=== PATIENT | female | born 1955 | race African-American/Black ===

== ENCOUNTER 2018-11-23 17:19 | Emergency (ER) | payer OTHER ==
[2018-11-23 19:52] LABS: Absolute Lymphocytes (CBC) 1.5 K/uL (0.7-4.9); Absolute Monocytes 0.5 K/uL (0.1-1.3); Absolute Neutrophil 3.3 K/uL (1.8-8.0); Basophils % 0.9 % (0-1.3); Eosinophils % 1.9 % (0-4.4); Hematocrit 41.8 % (36.0-45.0); MPV 8.1 fL (7.6-11.3); Monocytes % 8.6 % (3.3-12.3); RBC Red Blood Cell Count 4.96 M/uL (3.86-4.86)
[2018-11-23 19:54] LABS: Protime INR 1.07
--- NOTE | 2018-11-23 19:57 | RAD REPORT ---
EXAM DESCRIPTION: RAD - Chest Single View - 11/23/2018 7:51 pm CLINICAL HISTORY: CHEST PAIN Chest pain. COMPARISON: No comparisonsNo comparisons FINDINGS: Portable technique limits examination quality. The lungs are grossly clear. The heart is normal in size. No displaced fractures. IMPRESSION: No acute intrathoracic process suspected.
[2018-11-23 20:11] LABS: ALT/SGPT 47 U/L (12-78); AST/SGOT 34 U/L (15-37); Albumin 3.8 g/dL (3.4-5.0); Alkaline Phosphatase 122 U/L (45-117); BUN Blood Urea Nitrogen 15 mg/dL (7-18); Bicarbonate 30 mmol/L (21-32); Bilirubin Direct < 0.1 mg/dL (0-0.2); Bilirubin Total 0.4 mg/dL (0.2-1.0); Glucose Level 107 mg/dL (74-106); Magnesium 2.5 mg/dL (1.8-2.4); NT PRO-BNP 14 pg/mL (<125); Potassium 3.3 mmol/L (3.5-5.1); Protein, Total 7.9 g/dL (6.4-8.2); Sodium Level 143 mmol/L (136-145); Troponin (Emerg Dept Use Only) < 0.02 ng/mL (0.0-0.045)
[2018-11-23] MEDS ORDERED: POTASSIUM CL SA 10 MEQ TAB PO ONE (20:57)
--- NOTE | 2018-11-23 21:35 | EDPHYS ---
Physician Documentation [facility] Name: Darlene Tobias Age: 63 yrs Sex: Female : 1955 Arrival Date: 11/23/2018 Time: 17:23 Bed 24 Private MD: out of town, doctor ED Physician Justyn Jha HPI: 11/23 20:00 This 63 yrs old Black Female presents to ER via Ambulatory with complaints of Chest pm1 Pain. 21:40 The patient or guardian reports chest pain that is located primarily in the mid-sternal pm1 area. Onset: 1 week(s) ago. The pain does not radiate. Associated signs and symptoms: The patient has no apparent associated signs or symptoms, Pertinent negatives: abdominal pain, cough, diaphoresis, dizziness, headache, nausea, near syncope, palpitations, shortness of breath, vomiting. The chest pain is described as aching. Duration: The patient or guardian reports a single episode, that is still ongoing. Modifying factors: The symptoms are alleviated by nothing. the symptoms are aggravated by nothing. The patient has experienced similar episodes in the past, several times, today's symptoms are similar, Has had non-cardiac chest in the past evaluated by her author agent in the past. She has an appointment in 4 days with author agent. Historical: - Allergies: 17:30 No Known Allergies; hj - Home Meds: 17:30 losartan oral oral [Active]; levothyroxine oral [Active]; atorvastatin oral oral hj [Active]; Hydrochlorothiazide Oral [Active]; - PMHx: 17:30 Hypertension; Migraines; Sleep Apnea; hj - PSHx: 17:30 Cholecystectomy; Appendectomy; hj - Immunization history:: Adult Immunizations up to date. - Social history:: Smoking status: Patient/guardian denies using tobacco, Patient/guardian denies using alcohol. - Ebola Screening: : Patient negative for fever greater than or equal to 101.5 degrees Fahrenheit, and additional compatible Ebola Virus Disease symptoms Patient denies exposure to infectious person Patient denies travel to an Ebola-affected area in the 21 days before illness onset. ROS: 21:40 Constitutional: Negative for fever, chills, and weight loss, Eyes: Negative for injury, pm1 pain, redness, and discharge, ENT: Negative for injury, pain, and discharge, Neck: Negative for injury, pain, and swelling. 21:40 Respiratory: Negative for shortness of breath, cough, wheezing, and pleuritic chest pain, Abdomen/GI: Negative for abdominal pain, nausea, vomiting, diarrhea, and constipation, Back: Negative for injury and pain, : Negative for injury, bleeding, discharge, and swelling, MS/Extremity: Negative for injury and deformity, Skin: Negative for injury, rash, and discoloration, Neuro: Negative for headache, weakness, numbness, tingling, and seizure. 21:40 Cardiovascular: Positive for chest pain, Negative for edema, orthopnea, palpitations. Exam: 21:40 Constitutional: This is a well developed, well nourished patient who is awake, alert, pm1 and in no acute distress. Head/Face: Normocephalic, atraumatic. Eyes: Pupils equal round and reactive to light, extra-ocular motions intact. Lids and lashes normal. Conjunctiva and sclera are non-icteric and not injected. Cornea within normal limits. Periorbital areas with no swelling, redness, or edema. ENT: Nares patent. No nasal discharge, no septal abnormalities noted. Tympanic membranes are normal and external auditory canals are clear. Oropharynx with no redness, swelling, or masses, exudates, or evidence of obstruction, uvula midline. Mucous membranes moist. Neck: Trachea midline, no thyromegaly or masses palpated, and no cervical lymphadenopathy. Supple, full range of motion without nuchal rigidity, or vertebral point tenderness. No Meningismus. Chest/axilla: Normal chest wall appearance and motion. Nontender with no deformity. No lesions are appreciated. Cardiovascular: Regular rate and rhythm with a normal S1 and S2. No gallops, murmurs, or rubs. Normal PMI, no JVD. No pulse deficits. Respiratory: Lungs have equal breath sounds bilaterally, clear to auscultation and percussion. No rales, rhonchi or wheezes noted. No increased work of breathing, no retractions or nasal flaring. Abdomen/GI: Soft, non-tender, with normal bowel sounds. No distension or tympany. No guarding or rebound. No evidence of tenderness throughout. Back: No spinal tenderness. No costovertebral tenderness. Full range of motion. Skin: Warm, dry with normal turgor. Normal color with no rashes, no lesions, and no evidence of cellulitis. MS/ Extremity: Pulses equal, no cyanosis. Neurovascular intact. Full, normal range of motion. 21:40 Neuro: Orientation: is normal, Motor: is normal, Sensation: is normal, no obvious gross deficits, Gait: is steady, at a normal pace, without difficulty. Vital Signs: 17:32 BP 138 / 100; Pulse 92; Resp 18; Temp 97.1(TE); Pulse Ox 97% on R/A; Weight 115.21 kg; hj Height 5 ft. 9 in. (175.26 cm); Pain 8/10; 19:45 BP 164 / 98; Pulse 70; Resp 18; Pulse Ox 99% on R/A; ea 20:50 BP 133 / 83; Pulse 67; Resp 18; Pulse Ox 98% on R/A; ea 21:11 BP 124 / 87; Pulse 69; Resp 18; Pulse Ox 99% on R/A; jb5 17:32 Body Mass Index 37.51 (115.21 kg, 175.26 cm) MDM: 19:23 Patient medically screened. pm1 21:33 Data reviewed: vital signs. Data interpreted: Pulse oximetry: on room air is 99 %. pm1 Interpretation: normal. Counseling: I had a detailed discussion with the patient and/or guardian regarding: the historical points, exam findings, and any diagnostic results supporting the discharge/admit diagnosis, lab results, radiology results, the need for outpatient follow up, to return to the emergency department if symptoms worsen or persist or if there are any questions or concerns that arise at home. 11/23 19:14 Order name: Basic Metabolic Panel; Complete Time: 20:39 pm1 11/23 19:14 Order name: CBC with Diff; Complete Time: 19:58 pm1 11/23 19:14 Order name: LFT's; Complete Time: 20:39 pm1 11/23 19:14 Order name: Magnesium; Complete Time: 20:39 pm1 11/23 19:14 Order name: NT PRO-BNP; Complete Time: 20:39 pm1 11/23 19:14 Order name: PT-INR; Complete Time: 19:58 pm1 11/23 18:13 Order name: EKG Electrocardiogram EDTX 11/23 19:14 Order name: Troponin (emerg Dept Use Only); Complete Time: 20:39 pm1 11/23 19:14 Order name: XRAY Chest (1 view); Complete Time: 19:58 pm1 11/23 19:14 Order name: EKG; Complete Time: 19:15 pm1 11/23 19:14 Order name: Cardiac monitoring; Complete Time: 21:51 pm1 11/23 19:14 Order name: EKG - Nurse/Tech; Complete Time: 19:48 pm1 11/23 19:14 Order name: IV Saline Lock; Complete Time: 19:48 pm1 11/23 19:14 Order name: Labs collected and sent; Complete Time: 19:48 pm1 11/23 19:14 Order name: O2 Per Protocol; Complete Time: 19:49 pm1 11/23 19:14 Order name: O2 Sat Monitoring; Complete Time: 19:49 pm1 Administered Medications: 20:51 Drug: Potassium Chloride 40 mEq Route: PO; ea 21:41 Follow up: Response: No adverse reaction ea Disposition: 11/24 03:07 Co-signature as Attending Physician, Justyn Jha MD. katlin Disposition: 11/23/18 21:34 Discharged to Home. Impression: Chest pain, unspecified. - Condition is Stable. - Discharge Instructions: Nonspecific Chest Pain. - Medication Reconciliation Form, Thank You Letter form. - Follow up: Emergency Department; When: As needed; Reason: Worsening of condition. Follow up: Private Physician; When: 2 - 3 days; Reason: Recheck today's complaints, Continuance of care, Re-evaluation by your physician. - Problem is new. - Symptoms have improved. Signatures: Dispatcher [employer] EDJustyn De La Torre MD MD pkl Joaquin, Henry RN Vitaliy Marino, LUCERO LEAFLET DISTRIBUTOR pm1 Justina Ashley RN RN ea Corrections: (The following items were deleted from the chart) 11/23 21:56 21:34 11/23/2018 21:34 Discharged to Home. Impression: Chest pain, unspecified. ea Condition is Stable. Forms are Medication Reconciliation Form, Thank You Letter, Antibiotic Education, Prescription Opioid Use. Follow up: Emergency Department; When: As needed; Reason: Worsening of condition. Follow up: Private Physician; When: 2 - 3 days; Reason: Recheck today's complaints, Continuance of care, Re-evaluation by your physician. Problem is new. Symptoms have improved. pm1
--- NOTE | 2018-11-23 21:35 | ER ---
Nurse's Notes [facility] Name: Darlene Tobias Age: 63 yrs Sex: Female : 1955 Arrival Date: 11/23/2018 Time: 17:23 Bed 24 Private MD: out of town, doctor Diagnosis: Chest pain, unspecified Presentation: 11/23 17:27 Presenting complaint: Patient states: my chest hurts for couple of weeks now and hj numbness as on my L arm as well; called my PCP and told me to come to the ER; pain is 8/10; denies N/V; denies taking meds JIGMAKER;. Transition of care: patient was not received from another setting of care. Onset of symptoms was November 23, 2018. Risk Assessment: Do you want to hurt yourself or someone else? Patient reports no desire to harm self or others. Initial Sepsis Screen: Does the patient meet any 2 criteria? No. Patient's initial sepsis screen is negative. Does the patient have a suspected source of infection? No. Patient's initial sepsis screen is negative. Care prior to arrival: None. 17:27 Method Of Arrival: Ambulatory 17:27 Acuity: BISI 3 hj Triage Assessment: 17:31 General: Appears in no apparent distress. uncomfortable, Behavior is calm, cooperative, hj appropriate for age. Pain: Complains of pain in chest. Cardiovascular: Capillary refill < 3 seconds Patient's skin is warm and dry. Historical: - Allergies: 17:30 No Known Allergies; hj - Home Meds: 17:30 losartan oral oral [Active]; levothyroxine oral [Active]; atorvastatin oral oral hj [Active]; Hydrochlorothiazide Oral [Active]; - PMHx: 17:30 Hypertension; Migraines; Sleep Apnea; hj - PSHx: 17:30 Cholecystectomy; Appendectomy; hj - Immunization history:: Adult Immunizations up to date. - Social history:: Smoking status: Patient/guardian denies using tobacco, Patient/guardian denies using alcohol. - Ebola Screening: : Patient negative for fever greater than or equal to 101.5 degrees Fahrenheit, and additional compatible Ebola Virus Disease symptoms Patient denies exposure to infectious person Patient denies travel to an Ebola-affected area in the 21 days before illness onset. Screenin:31 Abuse screen: Denies threats or abuse. Denies injuries from another. Nutritional hj screening: No deficits noted. Tuberculosis screening: No symptoms or risk factors identified. Fall Risk None identified. Assessment: 17:34 Pain: Pain radiates to left arm Pain began. hj 18:53 General: Appears in no apparent distress. Behavior is calm, cooperative, appropriate tw2 for age. Pain: Complains of pain in chest Pain radiates to left arm. Neuro: Level of Consciousness is awake, alert, obeys commands, Oriented to person, place, time, situation. Cardiovascular: Reports chest pain, Heart tones S1 S2 Patient's skin is warm and dry. Respiratory: Airway is patent Respiratory effort is even, unlabored, Respiratory pattern is regular, symmetrical, Breath sounds are clear bilaterally. GI: No signs and/or symptoms were reported involving the gastrointestinal system. : No signs and/or symptoms were reported regarding the genitourinary system. EENT: No signs and/or symptoms were reported regarding the EENT system. Derm: No signs and/or symptoms reported regarding the dermatologic system. Musculoskeletal: Range of motion: intact in all extremities. 19:50 General: Appears in no apparent distress. Behavior is calm, cooperative, appropriate ea for age. Pain: Complains of pain in chest. Neuro: Level of Consciousness is awake, alert, obeys commands, Oriented to person, place, time, situation. Cardiovascular: Heart tones S1 S2 present Patient's skin is warm and dry. Respiratory: Airway is patent Respiratory effort is even, unlabored, Respiratory pattern is regular, symmetrical. GI: No signs and/or symptoms were reported involving the gastrointestinal system. GI: No signs and/or symptoms were reported involving the gastrointestinal system. Derm: No signs and/or symptoms reported regarding the dermatologic system. 20:30 Reassessment: Patient and/or family updated on plan of care and expected duration. Pain ea level reassessed. Patient is alert, oriented x 3, equal unlabored respirations, skin warm/dry/pink. 21:50 Reassessment: Patient and/or family updated on plan of care and expected duration. Pain ea level reassessed. Patient is alert, oriented x 3, equal unlabored respirations, skin warm/dry/pink. Discharge instructions given to patient, verbalized the understanding of instructions. Vital Signs: 17:32 BP 138 / 100; Pulse 92; Resp 18; Temp 97.1(TE); Pulse Ox 97% on R/A; Weight 115.21 kg; hj Height 5 ft. 9 in. (175.26 cm); Pain 8/10; 19:45 BP 164 / 98; Pulse 70; Resp 18; Pulse Ox 99% on R/A; ea 20:50 BP 133 / 83; Pulse 67; Resp 18; Pulse Ox 98% on R/A; ea 21:11 BP 124 / 87; Pulse 69; Resp 18; Pulse Ox 99% on R/A; jb5 17:32 Body Mass Index 37.51 (115.21 kg, 175.26 cm) hj ED Course: 17:23 Patient arrived in ED. mr 17:24 out of town, doctor is Private Physician. mr 17:29 Triage completed. hj 17:31 Arm band placed on right wrist. hj 17:31 Patient has correct armband on for positive identification. Placed in gown. Bed in low hj position. Call light in reach. Side rails up X 1. Adult w/ patient. 17:33 store associate on. Pulse ox on. NIBP on. hj 17:34 Patient maintains SpO2 saturation greater than 95% on room air. hj 17:38 EKG done, by die technician. reviewed by Manny Pugh MD. sm3 19:14 Vitaliy Peñaloza, LUCERO is PHCP. pm1 19:14 Justyn Jha MD is Attending Physician. pm1 19:18 Justina Ashley, JEVON is Primary Nurse. ea 19:20 Inserted saline lock: 20 gauge in left antecubital area, using aseptic technique. Blood jb5 collected. 19:51 XRAY Chest (1 view) In Process Unspecified. EDMS 21:39 No provider procedures requiring assistance completed. ea 21:50 IV discontinued, intact, bleeding controlled, No redness/swelling at site. Pressure ea dressing applied. Administered Medications: 20:51 Drug: Potassium Chloride 40 mEq Route: PO; ea 21:41 Follow up: Response: No adverse reaction ea Outcome: 21:34 Discharge ordered by . pm1 21:54 Discharged to home ambulatory, with significant other. ea 21:54 Condition: improved 21:54 Discharge instructions given to patient, Instructed on discharge instructions, follow up and referral plans. Demonstrated understanding of instructions, follow-up care. 21:56 Patient left the ED. ea Signatures: Dispatcher [employer] Casandra OlearyBrijesh RN RN hj Vitaliy Peñaloza, LUCERO PATIENT PARTNER pm1 Denise Cordon RN RN tw2 Pastora Sanchez jb5 Justina Ashley RN RN ea Montes, Shakira sm3 Corrections: (The following items were deleted from the chart) 17:34 17:32 Pulse 92bpm; Resp 18bpm; Pulse Ox 97% RA; Temp 97.1F Temporal; 115.21 kg; Height hj 5 ft. 9 in.; BMI: 37.5; Pain 8/10; hj 17:35 17:32 Pulse 92bpm; Resp 18bpm; Pulse Ox 97% RA; Temp 97.1F Temporal; 115.21 kg; Height hj 5 ft. 9 in.; BMI: 37.5; Pain 8/10; hj 17:36 17:32 Pulse 92bpm; Resp 18bpm; Pulse Ox 97% RA; Temp 97.1F Temporal; 115.21 kg; Height hj 5 ft. 9 in.; BMI: 37.5; Pain 8/10; hj
--- NOTE | 2018-11-24 13:56 | EKG ---
Test Date: 2018-11-23 Test Time: 17:30:37 Emd Special Education Teacher: HAN MEASUREMENT RESULTS: Intervals: Rate: 85 WY: 152 QRSD: 84 QT: 352 QTc: 418 [place]: P: 58 WY: 152 QRS: 12 T: 57 INTERPRETIVE STATEMENTS: Normal sinus rhythm Normal ECG No previous ECG available for comparison Electronically Signed On 11-24-18 13:53:56 SILVERLIGHT DEVELOPER by Patrick Izaguirre
--- NOTE | 2018-11-24 13:56 | EKG ---
Test Date: 2018-11-23 Test Time: 19:20:50 Orthotist Prosthetist: EZEKIEL MEASUREMENT RESULTS: Intervals: Rate: 71 WI: 158 QRSD: 88 QT: 394 QTc: 428 [place]: P: 60 WI: 158 QRS: 17 T: 43 INTERPRETIVE STATEMENTS: Normal sinus rhythm with sinus arrhythmia Normal ECG Compared to ECG 11/23/2018 17:30:37 No significant changes Electronically Signed On 11-24-18 13:53:53 GARLAND MAKER by Patrick Izaguirre
== END 2018-11-23 21:56 | disposition home or self-care (01) ==
LOC: ER 17:19
DX: R07.9 Chest pain, unspecified (principal); I10 Essential (primary) hypertension
CPT/HCPCS: 36415; 71045; 80048; 80076; 83735; 83880; 84484; 85025; 85610; 93005; 99285

== ENCOUNTER 2020-11-05 10:10 | Emergency (ER) | payer OTHER ==
--- OUTSIDE RECORDS SUMMARY | 2020-11-05 10:13 | XMS REPORT | Clinical Summary ---
:1955 Author Organization [facility] Address [address] [place] [address] Care Team Providers Name Role Phone Unavailable Primary Care Provider Unavailable Allergies Active Allergy Reactions Severity Noted Date Comments Baclofen Nausea Only 07/14/2020 Meloxicam Nausea Only 07/14/2020 Medications Medication Sig Dispensed Refills Start End Status Date Date montelukast (SINGULAIR) Take 10 mg by 0 Active 10 mg tablet mouth 0 nightly. levalbuterol (XOPENEX) Inhale 1.25 0 Active 1.25 mg/3 mL nebulizer mg by mouth 0 solution via inhaler. albuterol HFA (VENTOLIN INHALE 2 0 Active HFA) 90 mcg/actuation PUFFS INTO 0 inhaler THE LUNGS EVERY 4 TO 6 HOURS NEEDED FOR WHEEZING OR SHORTNESS OF BREATH amLODIPine (NORVASC) 10 Take 0.5 0 Active MG tablet tablets (5 mg 0 total) by mouth daily. levothyroxine Take 1 tablet 30 tablet 0 Ac tive (SYNTHROID, LEVOTHROID) (100 mcg 0 100 MCG tablet total) by mouth Every morning on an empty stomach. levothyroxine Take 75 mcg 0 Disc ontinued (SYNTHROID, LEVOTHROID) by mouth 0 020 (Stop Taking at 75 MCG tablet daily. Discha rge) hydroCHLOROthiazide Take 25 mg by 0 Discontinued (HYDRODIURIL) 25 MG mouth daily. 0 020 (Stop Taking at tablet Discharge) atorvastatin (LIPITOR) Take 20 mg by 0 11/21 Discontinued 20 MG tablet mouth daily. 0 020 (Sto p Taking at Discharge) amLODIPine (NORVASC) 10 Take 10 mg by 0 Discontinued MG tablet mouth daily. 0 020 (Reorde r) Active Problems Problem Noted Date Non-traumatic rhabdomyolysis 07/14/2020 Encounters Date Type Specialty Care Team Description 07/14/2020 - Hospital Cardiology Millan, Non-traumatic r habdomyolysis (Primary Dx); 07/21/2020 Encounter [place] Hypokalemia Devante Fonseca MD [facility] [place], Zandra Riggs MD 07/14/2020 Orders Only General Internal Medicine 07/14/2020 Travel after 11/05/2019 Social History Tobacco Use Types Packs/Day Years Used Date Never Smoker Smokeless Tobacco: Never Used Alcohol Use Drinks/Week oz/Week Comments No Alcohol Habits Answer Date Recorded How often do you have a drink containing alcohol? Never 07/14/2020 How many drinks containing alcohol do you have on a typical Not asked day when you are drinking? How often do you have six or more drinks on one occasion? No t asked Sex Assigned at Date Recorded Not on file Last Filed Vital Signs Vital Sign Reading Time Taken Comments Blood Pressure 105/58 07/21/2020 12:00 PM CDT Pulse 82 07/21/2020 12:00 PM CDT Temperature 36.7 C (98.1 F) 07/21/2020 12:00 PM CDT Respiratory Rate 18 07/21/2020 12:00 PM CDT Oxygen Saturation 99% 07/21/2020 12:00 PM CDT Inhaled Oxygen Concentration 21% 07/21/2020 12:55 AM CDT Weight 109.3 kg (241 lb) 07/20/2020 5:00 AM CDT Height 175.3 cm (5' 9") 07/14/2020 4:57 PM CDT Body Mass Index 35.59 07/14/2020 4:57 PM CDT Plan of Treatment Health Maintenance Due Date Last Done Comments BREAST CANCER SCREENING 1955 MEDICARE ANNUAL WELLNESS (YEAR 2 or FIRST YEAR if no 11/21/2015 IPPE) PNEUMOCOCCAL 65+ YRS (1 of 1 - [id number] PCV13) 2018 INFLUENZA VACCINE (#1) 2020 10/24/2018 COLON CANCER SCREENING COLONOSCOPY 05/01/2025 05/01/2015 Procedures Procedure Name Priority Date/Time Associated Comments Diagnosis RHYTHM STRIP - SCAN 08/03/2020 2:30 PM CDT RHYTHM STRIP - SCAN 07/22/2020 12:20 PM CDT RHYTHM STRIP - SCAN 07/20/2020 3:32 PM CDT REPORT OF PROCEDURE - 07/20/2020 9:50 ENDOSCOPY SCAN AM CDT COMPREHENSIVE METABOLIC Add-On 07/20/2020 5:44 Results for this PANEL AM CDT procedure are i n the results section. CREATINE KINASE (CK) Routine 07/20/2020 5:44 Res ults for this AM CDT procedure are i n the results section. CREATINE KINASE (CK) Routine 07/19/2020 4:37 Res ults for this AM CDT procedure are i n the results section. COMPREHENSIVE METABOLIC Routine 07/18/2020 3:37 Results for this PANEL AM CDT procedure are i n the results section. CREATINE KINASE (CK) Routine 07/18/2020 3:37 Res ults for this AM CDT procedure are i n the results section. ANTI-NUCLEAR ANTIBODY Routine 07/17/2020 4:19 Re sults for this (PARVIN) PM CDT procedure are i n the results section. T4, FREE Routine 07/17/2020 5:33 Results for this AM CDT procedure are i n the results section. CREATINE KINASE (CK) Add-On 07/17/2020 5:33 Res ults for this AM CDT procedure are i n the results section. PHOSPHORUS Routine 07/17/2020 5:33 Results for this AM CDT procedure are i n the results section. MAGNESIUM Routine 07/17/2020 5:33 Results for this AM CDT procedure are i n the results section. COMPREHENSIVE METABOLIC Routine 07/17/2020 5:33 Results for this PANEL AM CDT procedure are i n the results section. TSH/FREE T4 IF Routine 07/17/2020 5:33 Results f or this INDICATED AM CDT procedure are i n the results section. CBC W/PLT COUNT & AUTO Routine 07/16/2020 5:07 R esults for this DIFFERENTIAL AM CDT procedure are i n the results section. COMPREHENSIVE METABOLIC Routine 07/16/2020 5:07 Results for this PANEL AM CDT procedure are i n the results section. CBC W/PLT COUNT & AUTO Routine 07/16/2020 5:07 R esults for this DIFFERENTIAL AM CDT procedure are i n the results section. CREATINE KINASE (CK) Routine 07/16/2020 5:07 Res ults for this AM CDT procedure are i n the results section. COMPREHENSIVE METABOLIC Routine 07/15/2020 6:49 Results for this PANEL AM CDT procedure are i n the results section. CREATINE KINASE (CK) Routine 07/15/2020 6:49 Res ults for this AM CDT procedure are i n the results section. CBC W/PLT COUNT & AUTO Routine 07/15/2020 4:00 R esults for this DIFFERENTIAL AM CDT procedure are i n the results section. CBC W/PLT COUNT & AUTO Routine 07/15/2020 4:00 R esults for this DIFFERENTIAL AM CDT procedure are i n the results section. CREATINE KINASE (CK) Routine 07/14/2020 10:01 Res ults for this PM CDT procedure are i n the results section. SARS-COV2/RT-PCR ([facility] STAT 07/14/2020 12:24 R esults for this & REF LABS) PM CDT procedure are i n the results section. ED ECG INTERPRETATION Routine 07/14/2020 10:25 Re sults for this AM CDT procedure are i n the results section. CBC W/PLT COUNT & AUTO STAT 07/14/2020 10:23 R esults for this DIFFERENTIAL AM CDT procedure are i n the results section. URINALYSIS W/ STAT 07/14/2020 10:23 Results fo r this MICROSCOPIC AM CDT procedure are i n the results section. RAPID TROPONIN I STAT 07/14/2020 10:23 Results for this AM CDT procedure are i n the results section. CREATINE KINASE (CK) STAT 07/14/2020 10:23 Res ults for this AM CDT procedure are i n the results section. BASIC METABOLIC PANEL STAT 07/14/2020 10:23 Re sults for this (7) AM CDT procedure are i n the results section. CBC W/PLT COUNT & AUTO STAT 07/14/2020 10:23 R esults for this DIFFERENTIAL AM CDT procedure are i n the results section. ECG 12-LEAD Routine 07/14/2020 10:17 AM CDT Procedure Note - Interface, External Ris In - 07/14/2020 2:45 PM CDT Ventricular Rate 76 BPM Atrial Rate 76 BPM P-R Interval 176 ms QRS Duration 96 ms Q-T Interval 406 ms QTC Calculation(Bazett) 456 ms P [place] 51 degrees R [place] 11 degrees T [place] 45 degrees Normal sinus rhythm Normal ECG No previous ECGs available ECG 12-LEAD STAT 07/14/2020 10:17 AM CDT Resu lts for this procedure are in the results section . after 11/05/2019 Results RHYTHM STRIP - SCAN (08/03/2020 2:30 PM CDT)Only the most recent of3 results within the time period is included. Narrative Performed At This result has an attachment that is no t available. EKG-SCANNED (07/20/2020 9:50 AM CDT) Narrative Performed At This result has an attachment that is no t available. Creatine Kinase (CK) (07/20/2020 5:44 AM CDT)Only the most recent of8 results within the time period is included. Pathologist Sig nature Total CK 18,485 (H) 29 - 200 U/L [facility] Specimen Blood Narrative Performed At [facility] [place] [facility] [place] [facility] Performing Organization Address City/State/Zipcode Phone Number [facility] [address] [place] [address] CENTER Comprehensive metabolic panel (07/20/2020 5:44 AM CDT)Only the most recent of5 resultswithin the time period is included. Protein, Total 7.0 6.0 - 8.3 [facility] gm/dL [facility] Albumin 4.0 3.5 - 5.0 [facility] g/dL [facility] Alkaline 86 40 - 150 U/L [facility] Phosphatase [facility] Total Bilirubin 0.6 0.2 - 1.2 [facility] mg/dL [facility] Sodium 141 136 - 145 [facility] meq/L [facility] Potassium 3.8 3.5 - 5.1 [facility] meq/L [facility] Chloride 109 (H) 98 - 107 [facility] meq/L [facility] CO2 21 (L) 22 - 29 meq/L [facility] BUN 7 7 - 21 mg/dL [facility] Creatinine 0.66 0.57 - 1.25 [facility] mg/dL [facility] Glucose 73 70 - 105 [facility] mg/dL [facility] Calcium 9.2 8.4 - 10.2 [facility] mg/dL [facility] AST 251 (H) 5 - 34 U/L [facility] ALT 275 (H) 6 - 55 U/L [facility] EGFR 108Comment: mL/min/1.73 [facility] ESTIMATED GFR IS sq [facility] NOT [facility] CREATININE CLEARANCE IN PREDICTING GLOMERULAR FILTRATION RATE. ESTIMATED GFR IS NOT APPLICABLE FOR DIALYSIS PATIENTS. Specimen Blood Narrative Performed At [facility] ID - BS [facility] Performing Organization Address City/[facility] Centercode Phone Number [address] [address] CENTER Anti-Nuclear Antibody (PARVIN) (07/17/2020 4:19 PM CDT) Pathologist Sig nature PARVIN Negative Negative [facility] Specimen Blood Narrative Performed At Test performed by IFA method. [facility] Test performed by IFA method. Performing Organization Address City/[facility] Cancer Centercode Phone Number [address] [address] CENTER TSH/Free T4 If Indicated (07/17/2020 5:33 AM CDT) Pathologist Sig nature TSH 6.029 (H) 0.350 - 4.940 uIU/mL [facility] Specimen Blood Narrative Performed At [facility] ID - EDASI [facility] Performing Organization Address City/[facility]/Zipcode Phone Number [address] [address] CENTER T4, free (07/17/2020 5:33 AM CDT) Pathologist Sig nature Free T4 0.84 0.70 - 1.48 ng/dL [facility] Specimen Blood Narrative Performed At [facility] ID - [place] [facility] Performing Organization Address City/State/Zipcode Phone Number [facility] [address] [place] [address] CENTER Phosphorus (07/17/2020 5:33 AM CDT) Pathologist Sig nature Phosphorus 3.3 2.3 - 4.7 mg/dL [facility] Specimen Blood Narrative Performed At [facility] [facility] ID - IVANA [facility] Performing Organization Address City/[facility]/Zipcode Phone Number [address] [address] CENTER Magnesium (07/17/2020 5:33 AM CDT) Pathologist Sig nature Magnesium 1.9 1.6 - 2.6 mg/dL [facility] Specimen Blood Narrative Performed At [facility] ID - IVANA [facility] Performing Organization Address City/[facility] Cancer Centercofl Phone Number [address] [address] CENTER CBC with platelet count + automated diff (07/16/2020 5:07 AM CDT)Only the most recent of3 resultswithin the time period is included. Pathologist Sig nature WBC 5.3 3.5 - 10.5 [facility] K/L [facility] RBC 4.73 3.93 - 5.22 [facility] M/L [facility] Hemoglobin 13.0 11.2 - 15.7 [facility] GM/DL [facility] Hematocrit 40.7 34.1 - 44.9 % [facility] MCV 86.0 79.4 - 94.8 fL [facility] MCH 27.5 25.6 - 32.2 pg [facility] MCHC 31.9 (L) 32.2 - 35.5 [facility] GM/DL [facility] RDW 14.8 (H) 11.7 - 14.4 % [facility] Platelets 205 150 - 450 K/CU [facility] MPV 9.8 9.4 - 12.3 fL [facility] nRBC 0 0 - 0 /100 WBC [facility] % Neutros 56 % [facility] % Lymphs 35 % [facility] % Monos 7 % [facility] % Eos 2 % [facility] % Baso 1 % [facility] # Neutros 2.94 1.56 - 6.13 [facility] # Lymphs 1.86 1.18 - 3.74 [facility] # Monos 0.35 0.24 - 0.36 [facility] # Eos 0.09 0.04 - 0.36 [facility] # Baso 0.03 0.01 - 0.08 [facility] Immature 0 0 - 1 % [facility] Granulocytes-Relative [facility] Specimen Blood Performing Organization Address City/State/Zipcode Phone Number [facility] [address] [place] [address] CENTER SARS-CoV2/RT-PCR (Asymptomatic ONLY) (07/14/2020 12:24 PM CDT) SARS-COV2/RT-PCR Negative Not Detected, [facility] Negative, See [facility] MEDICAL external report CENTER for linked test SARS-COV-2 [facility] PERFORMING LAB [facility] Specimen Other - Nasopharyngeal wall structure (b brennon structure) Narrative Performed At Negative result for this test determines that [facility] SARS-CoV-2 RNA was not present in the specimen above the Limit of Detection (LOD). However, Negative results do not preclude SARS-CoV-2 infection and should not be used as the sole basis for treatment or patient management decisions. Negative results must be combined with clinical observations, patient history, and epidemiological information. A false negative result may occur if a specimen is improperly collected, transported or handled. A false negative result should be considered if patient's recent exposures or clinical presentation indicate that COVID-19 (SARS-CoV-2) is likely and diagnostic tests for other causes of illness are negative. Re-testing should be considered in cases of suspected false negatives. The limit of detection for this assay is 800 copies/mL. This SARS CoV-2 test is a real-time RT-PCR test intended for the qualitative detection of nucleic acid from SARS-CoV-2 in a nasopharyngeal swab specimen collected from individuals suspected of COVID-19 by their healthcare provider. This test has not been Food and Drug Administration (FDA) cleared or approved. This is a modified version of an approved Emergency Use Authorization (EUA) and is in the process of review by the FDA. Once authorized by the FDA, the issued EUA will be effective until the declaration that circumstances exist justifying the authorization of the emergency use of in vitro diagnostic tests for detection and/or diagnosis of COVID-19 is terminated under Section 564(b)(2) of the Act or the EUA is revoked under Section 564(g) of the Act. Fact Sheet for Healthcare Providers: https://www.[employer].com/sites/default/files/pro duct/documents/Fact_Sheet_HC_Providers_Lyra_SA RS-CoV-2.pdf Fact Sheet for Healthcare Patients: https://www.[employer].com/sites/default/files/pro duct/documents/Fact_Sheet_Patients_Lyra_SARS-C oV-2.pdf Performing Laboratory: [address] [place] [address] Performing Organization Address City/State/Zipcode Phone Number [address] [address] CENTER ECG/EKG Interpretation (07/14/2020 10:25 AM CDT) Narrative Performed At Lauro Millan 07/14/2020 12:16 PM ECG/EKG Interpretation Date/Time: 07/14/2020 10:17 AM Performed by: Lauro Millan Authorized by: Lauro Millan The ECG was interpreted by ED physician. This ECG was not compared with previous ECG(s).The ECG is interpreted a s sinus rhythm. Rate is normal rate. Heart rate is 76 BPM. Conduction: conduction normal. ST segments normal. T w aves normal. [place] is normal. Other findings: no other findings. Clini woody Impression: normal ECGECG reviewed and does not meet STEMI criteri a. Patient tolerance: Patient tolerated the procedure well with no imm ediate complications Rapid Troponin I (07/14/2020 10:23 AM CDT) Pathologist Sig nature Rapid Troponin I <0.05 <0.05 ng/mL [facility] Specimen Blood Performing Organization Address City/[facility]/Zipcode Phone Number [facility] [address] [place], [place] [id number] [facility] Urinalysis w/Microscopic (07/14/2020 10:23 AM CDT) Color, UA Yellow [facility] Clarity, UA Clear [facility] Specific [place], UA 1.020 1.001 - 1.035 [facility] pH, UA 7.0 5.0 - 8.0 [facility] Protein, UA Negative Negative [facility] Glucose, UA Negative Negative [facility] Ketones, UA Negative Negative [facility] Bilirubin, UA Negative Negative [facility] Blood, UA Negative Negative [facility] Nitrite, UA Negative Negative [facility] Leukocytes, UA Negative Negative [facility] Urobilinogen, UA 1.0 0.2 - 1.0 mg/dL [facility] RBC, UA None Seen /HPF [facility] WBC, UA None Seen /HPF [facility] SQUAMOUS EPITHELIAL <5 /HPF [facility] Specimen Source [facility] Specimen Urine Performing Organization Address City/State/Zipcofl Phone Number [facility] [address] [place], [place] [phone] [facility] Basic Metabolic Panel (07/14/2020 10:23 AM CDT) Sodium 139 135 - 148 meq/L [facility] Potassium 3.2 (L) 3.6 - 5.5 meq/L [facility] Chloride 100 98 - 106 meq/L [facility] CO2 31 24 - 32 meq/L [facility] BUN 13 10 - 26 mg/dL [facility] Creatinine 0.64 0.50 - 1.20 [facility] mg/dL [facility] Glucose 104 70 - 110 mg/dL [facility] Calcium 9.0 8.5 - 10.5 [facility] mg/dL [facility] EGFR 112Comment: mL/min/1.73 sq KIRSTIE DIAZ ESTIMATED GFR IS NOT m [facility] CREATININE [facility] GLOMERULAR LABORATORY FILTRATION RATE. ESTIMATED GFR IS NOT APPLICABLE FOR DIALYSIS PATIENTS. Specimen Blood Performing Organization Address City/State/Zipcode Phone Number KIRSTIE DIAZ [address] [place] [address] [facility] ECG 12 lead (07/14/2020 10:17 AM CDT) Specimen Narrative Performed At Ventricular Rate 76 BPM GE MUSE Atrial Rate 76 BPM P-R Interval 176 ms QRS Duration 96 ms Q-T Interval 406 ms QTC Calculation(Bazett) 456 ms P [place] 51 degrees R [place] 11 degrees T [place] 45 degrees Normal sinus rhythm Normal ECG No previous ECGs available Confirmed by Nick Bassett ([id number]) on 07/15/2020 2:43:45 PM Procedure Note Interface, External Ris In - 07/15/2020 2:43 PM CDT Ventricular Rate 76 BPM Atrial Rate 76 BPM P-R Interval 176 ms QRS Duration 96 ms Q-T Interval 406 ms QTC Calculation(Bazett) 456 ms P [place] 51 degrees R [place] 11 degrees T [place] 45 degrees Normal sinus rhythm Normal ECG No previous ECGs available Confirmed by Nick Bassett ([id number]) on 07/15 2:43:45 PM Performing Organization Address City/State/[facility] Centercode Phone Number HANNAH RAMIREZ after 11/05/2019 Advance Directives For more information, please contact: [phone] Code Status Date Activated Date Inactivated Comments Full Code 07/14/2020 8:50 PM 07/21/2020 7:05 PM This code status was determined by: Patient
--- OUTSIDE RECORDS SUMMARY | 2020-11-05 10:14 | XMS REPORT | Continuity of Care Document ---
:1955 Author Organization [facility] t Address [address] [place] [address] Care Team Providers Name Role Phone Hyun Attending Clinician Sumaya Fonseca MD Attending Clinician Anthony Olea MD Attending Clinician HYUN Attending Clinician Unavailable ANTHONY OLEA Admitting Clinician Unavailable Payers Payer Name Policy Type Policy Effective Expiration Source Number Date Date [facility] [id number] MEDICARE 00:00:00 [facility] [id number] [facility] Problems Condition Condition Condition Status Onset Resolution Last Treating Co mments Source Name Details Category Date Date Treatment Clinician Date Non-trauma Non-trauma Disease Active 2019-[address] tic tic 8-25 [facility] - rhabdomyol rhabdomyol 00:00: Me dical ysis ysis 00 Center Allergies, Adverse Reactions, Alerts Allergy Allergy Status Severity Reaction(s) Onset Inactive Treating Comm ents Source Name Type Date Date Clinician Baclof[place] Propensi Active Nausea Only 2020-[address] ty to 8-25 [facility] - adverse 00:00: Medical reaction 00 [place] [facility] Meloxica Propensi Active Nausea Only 2020-[address] m ty to 8-25 [facility] - adverse 00:00: Medical reaction 00 Center s Social History Social Habit Start Date Stop Date Quantity Comments Source History SDOH [facility] - Alcohol Std Drinks [facility] Medical Joslyn ter Sex Assigned At [facility] ke [facility] Tobacco use and 2020-07-14 2020-07-14 Never used [facility] Karolyn lentz - exposure 00:00:00 00:00:00 [facility] Alcohol intake 2020-07-14 2020-07-14 Current [facility] [place] - 00:00:00 00:00:00 non-drinker of Medical Ce nter alcohol (finding) History SDOH 2020-07-14 2020-07-[address] [facility] [address] [place] - Alcohol Frequency 00:00:00 00:00:00 [facility] Smoking Status Start Date Stop Date Source Never smoker [facility] [place] Medications Ordered Filled Start Stop Current Ordering Indication Dosage Frequency Signature Comments Components Source Medication Medication Date Date Medication? Clinician (SIG) Name Name levothyroxi 2020-0 Yes 100ug Take [address] [facility] ne 9-02 tablet [facility] - (SYNTHROID, 00:00: (100 mcg Me dical LEVOTHROID) 00 total) by [facility] ter 100 MCG mouth tablet Every morning on an empty stomach. amLODIPine 2020-0 Yes 5mg QD Take 0.[address] [facility] (NORVASC) 9-01 tablets (5 [facility] - 10 MG 00:00: mg total) Medical tablet 00 by mouth Center daily. levalbutero 2020-0 Yes 1.25mg Inhale [facility] (XOPENEX) 8-24 1.25 mg by [facility] - 1.25 mg/3 00:00: mouth via Med ical mL 00 inhaler. [place] nebulizer solution levothyroxi 2020-0 2020- No 75ug QD Take [address] ne 7-24 09-01 mcg by [facility] - (SYNTHROID, 00:00: 00:00 mouth Medi woody LEVOTHROID) 00 :00 daily. Center 75 MCG tablet hydroCHLORO 2020-0 2020- No 25mg QD Take [address] thiazide 7-14 09-01 by mouth [facility] - (HYDRODIURI 00:00: 00:00 daily. Med ical L) 25 MG 00 :00 Center tablet albuterol 2020-0 Yes INHALE [address] [facility] [address] HFA 6-30 PUFFS INTO [facility] - (VENTOLIN 00:00: THE LUNGS Med ical HFA) 90 00 EVERY 4 TO Center mcg/actuati 6 HOURS on inhaler NEEDED FOR WHEEZING OR SHORTNESS OF BREATH montelukast 2020-0 Yes 10mg QD Take [address] (SINGULAIR) 05-16 by mouth Luke s - 10 mg 00:00: nightly. Medical tablet 00 [place] atorvastati No 20mg QD Take [address] n (LIPITOR) 04-15 by mouth [place] - 20 MG 00:00: 00:00 daily. Medical tablet 00 :00 [place] amLODIPine No 10mg QD Take [address] (NORVASC) 04-15 by mouth [facility] - 10 MG 00:00: 00:00 daily. Medical tablet 00 :00 [place] Vital Signs Vital Name Observation Time Observation Value Comments Source Systolic blood 2020-07-21 12:00:00 105 mm[Hg] [facility] Diastolic blood 2020-07-21 12:00:00 58 mm[Hg] [facility] S t [facility] Heart rate 2020-07-21 12:00:00 82 /min [facility] Body temperature 2020-07-21 12:00:00 36.72 Elle [facility] Respiratory rate 2020-07-21 12:00:00 18 /min [facility] Oxygen saturation in 2020-07-21 12:00:00 99 /min [facility] Arterial blood by Medical Ce nter Pulse oximetry Body weight 2020-07-20 05:00:00 109.317 kg [facility] BMI 2020-07-20 05:00:00 35.59 kg/m2 [facility] Body height 2020-07-14 16:57:00 175.3 cm [facility] Procedures Procedure Date / Time Performing Clinician Source Performed RHYTHM STRIP - SCAN 2020-08-03 14:30:50 Provider, Default [facility] RHYTHM STRIP - SCAN 2020-07-22 12:20:51 Provider, Default [facility] RHYTHM STRIP - SCAN 2020-07-20 15:32:59 Provider, Default [facility] REPORT OF PROCEDURE - 2020-07-20 09:50:40 Provider, Default [facility] ENDOSCOPY SCAN [facility] CREATINE KINASE (CK) 2020-07-20 05:44:00 Dodie, [facility] 2020-07-20 05:44:00 Dodie, Zandra [facility] CREATINE KINASE (CK) 2020-07-19 04:37:00 Dodie, [facility] CREATINE KINASE (CK) 2020-07-18 03:37:00 Dodie, [facility] METABOLIC 2020-07-18 03:37:00 Dodie, [facility] ANTI-NUCLEAR ANTIBODY 2020-07-17 16:19:00 Dodie, [facility] ([facility]) [facility] TSH/FREE T4 IF INDICATED 2020-07-17 05:33:00 Dodie, Zandra [facility] 2020-07-17 05:33:00 Dodie, Zandra [facility] MAGNESIUM 2020-07-17 05:33:00 Dodie, Zandra [facility] PHOSPHORUS 2020-07-17 05:33:00 Dodie, [facility] CREATINE KINASE (CK) 2020-07-17 05:33:00 Dodie, [facility] T4, FREE 2020-07-17 05:33:00 Dodie, [facility] CREATINE KINASE (CK) 2020-07-16 05:07:00 Dodie, [facility] 2020-07-16 05:07:00 Dodie, Zandra [facility] CBC W/PLT COUNT & AUTO 2020-07-16 05:07:00 Dodie, [facility] CREATINE KINASE (CK) 2020-07-15 06:49:00 Malia Joe [facility] 2020-07-15 06:49:00 [facility] W/[facility]T [facility] & AUTO 2020-07-15 04:00:[address] [facility] CREATINE KINASE (CK) 2020-07-14 22:01:00 Malia Joe [facility] I [facility] SARS-COV2/RT-PCR ([facility] & 2020-07-14 12:24:[address] [facility] - REF LABS) [facility] ED ECG INTERPRETATION 2020-07-14 10:25:19 Lauro Millan [facility] BASIC METABOLIC PANEL (7) 2020-07-14 10:23:00 [facility]AT[facility]INASE (CK) 2020-07-14 10:23:00 Millan [facility] RAPID TROPONIN I 2020-07-14 10:23:00 Millan [facility] URINALYSIS W/ MICROSCOPIC 2020-07-14 10:23:00 Millan [facility] CBC W/PLT COUNT & AUTO 2020-07-14 10:23:00 [facility] ECG 12-LEAD 2020-07-14 10:17:42 Unknown, Hl7 Doctor [facility] Plan of Care Planned Activity Planned Date Details Comments Source Future Scheduled 2025-05-[address] [place] - Test 00:00:00 malignant neoplasm of [facility] colon (procedure) [code = 566160322] Future Scheduled 2020-07-21 INFLUENZA VACCINE (#1) [facility] Test 00:00:00 [code = INFLUENZA Medical Ce nter VACCINE (#1)] Future Scheduled 2018 PNEUMOCOCCAL 65+ Y[facility] - Test 00:00:00 (1 of 1 - [facility] [id number] PCV13) [code = PNEUMOCOCCAL 65+ YRS (1 of 1 - [id number] PCV13)] Future Scheduled 2015-11-[address] [facility] - Test 00:00:00 WELLNESS (YEAR 2 or Medical Center FIRST YEAR if no IPPE) [code = MEDICARE ANNUAL WELLNESS (YEAR 2 or FIRST YEAR if no IPPE)] Future Scheduled [address] [facility] [place] - Test 00:00:00 malignant neoplasm of [facility]ica Center breast (procedure) [code = 389308140] Results Test Description Test Time Test Comments Results Result Comments Source Comprehensive metabolic panel 2020-07-20 18:23:00 Test Item Value Reference Range Interpretation Comme nts Protein, Total (test code = 7.0 6.0- 8.3 gm/dL 2885-2) Albumin (test code = 4.0 g/dL 3.5-5 31704-5) Alkaline Phosphatase (test 86 U/L 40-150 code = 6768-6) Total Bilirubin (test code 0.6 mg/dL 0.2-1.2 = 1974-2) Sodium (test code = 2951-2) 141 meq/L 136-145 Potassium (test code = 3.8 meq/L 3.5-5.1 2823-3) Chloride (test code = 109 meq/L 98-107 H 2075-0) CO2 (test code = 8-9) 21 meq/L 22-29 L BUN (test code = 3094-0) 7 mg/dL 7-21 Creatinine (test code = 0.66 mg/dL 0.57-1.25 2160-0) Glucose (test code = 73 mg/dL 70-105 2345-7) Calcium (test code = 9.2 mg/dL 8.4-10.2 34798-4) AST (test code = 1920-8) 251 U/L 5-34 H ALT (test code = 1742-6) 275 U/L 6-55 H EGFR (test code = 80935-9) 108 mL/min/1.73 sq m ESTIMATED GFR IS NOT ACCURATE CREATININE [place] JOHNNY IN PREDICTING GLOMERULAR FILT RATION RATE. ESTIMATED GFR IS NOT APPLICABLE FOR DIALYSIS PATIEN TSStevie MARISA (test code = MARISA) Creative Services Designer ID - BS Lab Interpretation (test Abnormal code = 15954-8) [facility] METABOL[facility] [id number] 18:23:00 Test Item Value Reference Range Interpretation Comments TOTAL PROTEIN 7.0 gm/dL 6.0-8.3 (BEAKER) (test code = 770) ALBUMIN (BEAKER) 4.0 g/dL 3.5-5.0 (test code = 1145) ALKALINE PHOSPHATASE 86 U/L 40-150 (BEAKER) (test code = 346) BILIRUBIN TOTAL 0.6 mg/dL 0.2-1.2 (BEAKER) (test code = 377) SODIUM (BEAKER) (test 141 meq/L 136-145 code = 381) POTASSIUM (BEAKER) 3.8 meq/L 3.5-5.1 (test code = 379) CHLORIDE (BEAKER) 109 meq/L 98-107 H (test code = 382) CO2 (BEAKER) (test 21 meq/L 22-29 L code = 355) BLOOD UREA NITROGEN 7 mg/dL 7-21 (BEAKER) (test code = 354) CREATININE (BEAKER) 0.66 mg/dL 0.57-1.25 (test code = 358) GLUCOSE RANDOM 73 mg/dL 70-105 (BEAKER) (test code = 652) CALCIUM (BEAKER) 9.2 mg/dL 8.4-10.2 (test code = 697) AST (SGOT) (BEAKER) 251 U/L 5-34 H (test code = 353) ALT (SGPT) (BEAKER) 275 U/L 6-55 H (test code = 347) EGFR (BEAKER) (test 108 ESTIMATE D GFR IS code = 1092) mL/min/1.73 sq NOT ACCURA TE m CREATININE CLEARANCE IN PREDICTING GLOMERULAR FILTRATION RATE . ESTIMATED GFR I S NOT APPLICABLE FOR DIALYSIS PATIEN TS. Creative Services Designer ID - BSAnti-Nuclear Antibody (PARVIN)2020-07-20 14:46:00 Test Item Value Reference Range Interpretation Comments PARVIN (test code = 87462-8) Negative Negative MARISA (test code = MARISA) Test performed by IFA method.Test performed by IFA method. Lab Interpretation (test Normal code = 51488-5) [facility]CLE[facility] ANTIBODY (PARVIN)2020-07-20 14:46:00 Test Item Value Reference Range Interpretation Comments ANTI-NUCLEAR ANTIBODY (PARVIN) (BEAKER) Negative Negative (test code = 418) Test performed by IFA method.Test performed by IFA method.Creatine Kinase (CK) 2020-07-20 11:27:00 Test Item Value Reference Range Interpretation Comments Total CK (test code = 86994 U/L 29-200 H 2157-6) MARISA (test code = MARISA) Creative Services Designer ID - HAMILTON C Lab Interpretation (test Abnormal code = 89630-2) [facility]CREAT[facility] KINASE (CK)2020-07-20 11:27:00 Test Item Value Reference Range Interpretation Comments CREATINE KINASE TOTAL (BEAKER) 56968 U/L 29-200 H (test code = 380) Creative Services Designer ID - HAMILTON CCREATINE KINASE (CK)2020-07-19 06:35:00 Test Item Value Reference Range Interpretation Comments CREATINE KINASE TOTAL (BEAKER) 93721 U/L 29-200 H (test code = 380) Creative Services Designer ID - PHYLLIS LCREATINE KINASE (CK)2020-07-18 04:49:00 Test Item Value Reference Range Interpretation Comments CREATINE KINASE TOTAL (BEAKER) 11931 U/L 29-200 H (test code = 380) Creative Services Designer ID - ARTHUR MCOMPREHENSIVE METABOLIC [id number] 04:17:00 Test Item Value Reference Range Interpretation Comments TOTAL PROTEIN 6.8 gm/dL 6.0-8.3 (BEAKER) (test code = 770) ALBUMIN (BEAKER) 3.9 g/dL 3.5-5.0 (test code = 1145) ALKALINE PHOSPHATASE 89 U/L 40-150 (BEAKER) (test code = 346) BILIRUBIN TOTAL 0.7 mg/dL 0.2-1.2 (BEAKER) (test code = 377) SODIUM (BEAKER) (test 143 meq/L 136-145 code = 381) POTASSIUM (BEAKER) 3.8 meq/L 3.5-5.1 (test code = 379) CHLORIDE (BEAKER) 110 meq/L 98-107 H (test code = 382) CO2 (BEAKER) (test 25 meq/L 22-29 code = 355) BLOOD UREA NITROGEN 6 mg/dL 7-21 L (BEAKER) (test code = 354) CREATININE (BEAKER) 0.67 mg/dL 0.57-1.25 (test code = 358) GLUCOSE RANDOM 80 mg/dL 70-105 (BEAKER) (test code = 652) CALCIUM (BEAKER) 9.0 mg/dL 8.4-10.2 (test code = 697) AST (SGOT) (BEAKER) 260 U/L 5-34 H (test code = 353) ALT (SGPT) (BEAKER) 270 U/L 6-55 H (test code = 347) EGFR (BEAKER) (test 106 ESTIMATE D GFR IS code = 1092) mL/min/1.73 sq NOT ACCURA TE m CREATININE CLEARANCE IN PREDICTING GLOMERULAR FILTRATION RATE . ESTIMATED GFR I S NOT APPLICABLE FOR DIALYSIS PATIEN TS. Creative Services Designer ID - PHYLLIS LCREATINE KINASE (CK)2020-07-17 08:37:00 Test Item Value Reference Range Interpretation Comments CREATINE KINASE TOTAL (BEAKER) 03938 U/L 29-200 H (test code = 380) Creative Services Designer ID - HAMILTON CT4, [id number] 07:04:00 Test Item Value Reference Range Interpretation Comments Free T4 (test code = 0.84 ng/dL 0.7-1.48 3024-7) MARISA (test code = MARISA) Creative Services Designer ID - HAMILTON C Lab Interpretation (test Normal code = 93761-4) [facility]atoriumT4, [id number] 07:04:00 Test Item Value Reference Range Interpretation Comments FREE T4 (BEAKER) (test code = 655) 0.84 ng/dL 0.70-1.48 Creative Services Designer ID - HAMILTON CTSH/Free T4 If [id number] 06:35:00 Test Item Value Reference Range Interpretation Comments TSH (test code = 6.029 0.350- 4.940 uIU/mL H 49520-4) MARISA (test code = MARISA) Creative Services Designer ID - IVANA Lab Interpretation (test Abnormal code = 09823-0) [facility]atoriumTSH/FREE T4 IF [id number] 06:35:00 Test Item Value Reference Range Interpretation Comments THYROID STIMULATING HORMONE 6.029 uIU/mL 0.350-4.940 H (BEAKER) (test code = 772) Creative Services Designer ID - [id number] 06:27:00 Test Item Value Reference Range Interpretation Comments Magnesium (test code = 1.9 mg/dL 1.6-2.6 01400-6) MARISA (test code = MARISA) Creative Services Designer ID - IVANA Lab Interpretation (test Normal code = 20612-2) [facility]atoriumPhosphorus2020-08-28 06:27:00 Test Item Value Reference Range Interpretation Comments Phosphorus (test code = 3.3 mg/dL 2.3-4.7 2777-1) MARISA (test code = MARISA) Creative Services Designer ID - EDASI Lab Interpretation (test Normal code = 15277-4) [facility]atoriumPHOSPHORUS2020-08-28 06:27:00 Test Item Value Reference Range Interpretation Comments PHOSPHORUS (BEAKER) (test code = 3.3 mg/dL 2.3-4.7 604) Creative Services Designer ID - [id number] 06:27:00 Test Item Value Reference Range Interpretation Comments MAGNESIUM (BEAKER) (test code = 1.9 mg/dL 1.6-2.6 627) Creative Services Designer ID - EDASICOMPREHENSIVE METABOLIC [id number] 06:27:00 Test Item Value Reference Range Interpretation Comments TOTAL PROTEIN 6.7 gm/dL 6.0-8.3 (BEAKER) (test code = 770) ALBUMIN (BEAKER) 3.8 g/dL 3.5-5.0 (test code = 1145) ALKALINE PHOSPHATASE 89 U/L 40-150 (BEAKER) (test code = 346) BILIRUBIN TOTAL 0.8 mg/dL 0.2-1.2 (BEAKER) (test code = 377) SODIUM (BEAKER) (test 143 meq/L 136-145 code = 381) POTASSIUM (BEAKER) 3.5 meq/L 3.5-5.1 (test code = 379) CHLORIDE (BEAKER) 112 meq/L 98-107 H (test code = 382) CO2 (BEAKER) (test 22 meq/L 22-29 code = 355) BLOOD UREA NITROGEN 7 mg/dL 7-21 (BEAKER) (test code = 354) CREATININE (BEAKER) 0.65 mg/dL 0.57-1.25 (test code = 358) GLUCOSE RANDOM 83 mg/dL 70-105 (BEAKER) (test code = 652) CALCIUM (BEAKER) 8.7 mg/dL 8.4-10.2 (test code = 697) AST (SGOT) (BEAKER) 247 U/L 5-34 H (test code = 353) ALT (SGPT) (BEAKER) 253 U/L 6-55 H (test code = 347) EGFR (BEAKER) (test 110 ESTIMATE D GFR IS code = 1092) mL/min/1.73 sq NOT ACCURA TE m CREATININE CLEARANCE IN PREDICTING GLOMERULAR FILTRATION RATE . ESTIMATED GFR I S NOT APPLICABLE FOR DIALYSIS PATIEN TS. Creative Services Designer ID - EDASICREATINE KINASE (CK)2020-07-16 07:33:00 Test Item Value Reference Range Interpretation Comments CREATINE KINASE TOTAL (BEAKER) 90177 U/L 29-200 H (test code = 380) Creative Services Designer ID - NTPCOMPREHENSIVE METABOLIC [id number] 06:32:00 Test Item Value Reference Range Interpretation Comments TOTAL PROTEIN 6.6 gm/dL 6.0-8.3 (BEAKER) (test code = 770) ALBUMIN (BEAKER) 3.8 g/dL 3.5-5.0 (test code = 1145) ALKALINE PHOSPHATASE 91 U/L 40-150 (BEAKER) (test code = 346) BILIRUBIN TOTAL 0.8 mg/dL 0.2-1.2 (BEAKER) (test code = 377) SODIUM (BEAKER) (test 140 meq/L 136-145 code = 381) POTASSIUM (BEAKER) 3.5 meq/L 3.5-5.1 (test code = 379) CHLORIDE (BEAKER) 109 meq/L 98-107 H (test code = 382) CO2 (BEAKER) (test 23 meq/L 22-29 code = 355) BLOOD UREA NITROGEN 6 mg/dL 7-21 L (BEAKER) (test code = 354) CREATININE (BEAKER) 0.61 mg/dL 0.57-1.25 (test code = 358) GLUCOSE RANDOM 85 mg/dL 70-105 (BEAKER) (test code = 652) CALCIUM (BEAKER) 8.8 mg/dL 8.4-10.2 (test code = 697) AST (SGOT) (BEAKER) 244 U/L 5-34 H (test code = 353) ALT (SGPT) (BEAKER) 246 U/L 6-55 H (test code = 347) EGFR (BEAKER) (test 119 ESTIMATE D GFR IS code = 1092) mL/min/1.73 sq NOT ACCURA TE m CREATININE CLEARANCE IN PREDICTING GLOMERULAR FILTRATION RATE . ESTIMATED GFR I S NOT APPLICABLE FOR DIALYSIS PATIEN TS. Creative Services Designer ID - NTPCBC with platelet count + automated [id number] 05:36:00 Test Item Value Reference Range Interpretation Comments WBC (test code = 6690-2) 5.3 3.5- 10.5 K/L RBC (test code = 789-8) 4.73 3.93- 5.22 M/L MCHC (test code = 786-4) 31.9 32.2- 35.5 GM/DL L Hematocrit (test code = 4544-3) 40.7 % 34.1-44.9 MCV (test code = 787-2) 86.0 fL 79.4-94.8 MCH (test code = 785-6) 27.5 pg 25.6-32.2 RDW (test code = 788-0) 14.8 % 11.7-14.4 H Platelets (test code = 777-3) 205 150- 450 K/CU MM MPV (test code = 26645-3) 9.8 fL 9.4-12.3 nRBC (test code = 413) 0 0- 0 /100 WBC % Neutros (test code = 429) 56 % % Lymphs (test code = 430) 35 % % Monos (test code = 431) 7 % % Eos (test code = 432) 2 % % Baso (test code = 437) 1 % # Neutros (test code = 670) 2.94 1.56- 6.13 K/L # Lymphs (test code = 414) 1.86 1.18- 3.74 K/L # Monos (test code = 415) 0.35 0.24- 0.36 K/L # Eos (test code = 416) 0.09 0.04- 0.36 K/L # Baso (test code = 417) 0.03 0.01- 0.08 K/L Immature Granulocytes-Relative 0 % 0-1 (test code = 2801) Lab Interpretation (test code = Abnormal 02461-7) [facility] W/PLT COUNT & AUTO [id number] 05:36:00 Test Item Value Reference Range Interpretation Comments WHITE BLOOD CELL COUNT (BEAKER) 5.3 K/ L 3.5-10.5 (test code = 775) RED BLOOD CELL COUNT (BEAKER) 4.73 M/ L 3.93-5.22 (test code = 761) HEMOGLOBIN (BEAKER) (test code = 13.0 GM/DL 11.2-15.7 410) HEMATOCRIT (BEAKER) (test code = 40.7 % 34.1-44.9 411) MEAN CORPUSCULAR VOLUME (BEAKER) 86.0 fL 79.4-94.8 (test code = 753) MEAN CORPUSCULAR HEMOGLOBIN 27.5 pg 25.6-32.2 (BEAKER) (test code = 751) MEAN CORPUSCULAR HEMOGLOBIN CONC 31.9 GM/DL 32.2-35.5 L (BEAKER) (test code = 752) RED CELL DISTRIBUTION WIDTH 14.8 % 11.7-14.4 H (BEAKER) (test code = 412) PLATELET COUNT (BEAKER) (test 205 K/CU MM 150-450 code = 756) MEAN PLATELET VOLUME (BEAKER) 9.8 fL 9.4-12.3 (test code = 754) NUCLEATED RED BLOOD CELLS 0 /100 WBC 0-0 (BEAKER) (test code = 413) NEUTROPHILS RELATIVE PERCENT 56 % (BEAKER) (test code = 429) LYMPHOCYTES RELATIVE PERCENT 35 % (BEAKER) (test code = 430) MONOCYTES RELATIVE PERCENT 7 % (BEAKER) (test code = 431) EOSINOPHILS RELATIVE PERCENT 2 % (BEAKER) (test code = 432) BASOPHILS RELATIVE PERCENT 1 % (BEAKER) (test code = 437) NEUTROPHILS ABSOLUTE COUNT 2.94 K/ L 1.56-6.13 (BEAKER) (test code = 670) LYMPHOCYTES ABSOLUTE COUNT 1.86 K/ L 1.18-3.74 (BEAKER) (test code = 414) MONOCYTES ABSOLUTE COUNT (BEAKER) 0.35 K/ L 0.24-0.36 (test code = 415) EOSINOPHILS ABSOLUTE COUNT 0.09 K/ L 0.04-0.36 (BEAKER) (test code = 416) BASOPHILS ABSOLUTE COUNT (BEAKER) 0.03 K/ L 0.01-0.08 (test code = 417) IMMATURE GRANULOCYTES-RELATIVE 0 % 0-1 PERCENT (BEAKER) (test code = 2801) ECG 12 [id number] 14:43:48Interface, External Ris In - 07/15/2020 2:43 PM CDTVentricular Rate 76 BPMAtrial Rate 76 BPMP-R Interval 176 msQRS Duration 96 msQ-T Interval 406 msQTC Calculation(Bazett) 456 msP [place] 51 degreesR [place] 11 degreesT [place] 45 degreesNormal sinus rhythmNormal ECGNo previous ECGs availableConfirmed by Nick Bassett ([id number]) on 07/15/2020 2:43:45 [facility]2020-07-15 09:28:00 Test Item Value Reference Range Interpretation Comments CREATINE KINASE TOTAL (BEAKER) 03803 U/L 29-200 H (test code = 380) Creative Services Designer ID - HAMILTON CCOMPREHENSIVE METABOLIC [id number] 07:28:00 Test Item Value Reference Range Interpretation Comments TOTAL PROTEIN 6.5 gm/dL 6.0-8.3 Specimen sligh tly (BEAKER) (test code = hemoly zed 770) ALBUMIN (BEAKER) 3.6 g/dL 3.5-5.0 Specimen sl ightly (test code = 1145) hemolyzed ALKALINE PHOSPHATASE 88 U/L 40-150 (BEAKER) (test code = 346) BILIRUBIN TOTAL 0.6 mg/dL 0.2-1.2 Specimen sli ghtly (BEAKER) (test code = hemoly zed 377) SODIUM (BEAKER) (test 140 meq/L 136-145 code = 381) POTASSIUM (BEAKER) 3.4 meq/L 3.5-5.1 L Specimen slightly (test code = 379) hemolyzed CHLORIDE (BEAKER) 107 meq/L 98-107 (test code = 382) CO2 (BEAKER) (test 25 meq/L 22-29 code = 355) BLOOD UREA NITROGEN 9 mg/dL 7-21 (BEAKER) (test code = 354) CREATININE (BEAKER) 0.67 mg/dL 0.57-1.25 Specimen slightly (test code = 358) hemolyzed GLUCOSE RANDOM 87 mg/dL 70-105 (BEAKER) (test code = 652) CALCIUM (BEAKER) 8.4 mg/dL 8.4-10.2 (test code = 697) AST (SGOT) (BEAKER) 194 U/L 5-34 H Specimen slightly (test code = 353) hemolyzed ALT (SGPT) (BEAKER) 215 U/L 6-55 H Specimen slightly (test code = 347) hemolyzed EGFR (BEAKER) (test 106 ESTIMATE D GFR IS code = 1092) mL/min/1.73 sq NOT ACCURA TE m CREATININE CLEARANCE IN PREDICTING GLOMERULAR FILTRATION RATE . ESTIMATED GFR I S NOT APPLICABLE FOR DIALYSIS PATIEN TS. Creative Services Designer ID - PIAYA LCBC W/PLT COUNT & AUTO [id number] 04:20:00 Test Item Value Reference Range Interpretation Comments WHITE BLOOD CELL COUNT (BEAKER) 4.7 K/ L 3.5-10.5 (test code = 775) RED BLOOD CELL COUNT (BEAKER) 4.91 M/ L 3.93-5.22 (test code = 761) HEMOGLOBIN (BEAKER) (test code = 13.2 GM/DL 11.2-15.7 410) HEMATOCRIT (BEAKER) (test code = 41.5 % 34.1-44.9 411) MEAN CORPUSCULAR VOLUME (BEAKER) 84.5 fL 79.4-94.8 (test code = 753) MEAN CORPUSCULAR HEMOGLOBIN 26.9 pg 25.6-32.2 (BEAKER) (test code = 751) MEAN CORPUSCULAR HEMOGLOBIN CONC 31.8 GM/DL 32.2-35.5 L (BEAKER) (test code = 752) RED CELL DISTRIBUTION WIDTH 14.8 % 11.7-14.4 H (BEAKER) (test code = 412) PLATELET COUNT (BEAKER) (test 213 K/CU MM 150-450 code = 756) MEAN PLATELET VOLUME (BEAKER) 9.9 fL 9.4-12.3 (test code = 754) NUCLEATED RED BLOOD CELLS 0 /100 WBC 0-0 (BEAKER) (test code = 413) NEUTROPHILS RELATIVE PERCENT 55 % (BEAKER) (test code = 429) LYMPHOCYTES RELATIVE PERCENT 35 % (BEAKER) (test code = 430) MONOCYTES RELATIVE PERCENT 7 % (BEAKER) (test code = 431) EOSINOPHILS RELATIVE PERCENT 2 % (BEAKER) (test code = 432) BASOPHILS RELATIVE PERCENT 0 % (BEAKER) (test code = 437) NEUTROPHILS ABSOLUTE COUNT 2.62 K/ L 1.56-6.13 (BEAKER) (test code = 670) LYMPHOCYTES ABSOLUTE COUNT 1.65 K/ L 1.18-3.74 (BEAKER) (test code = 414) MONOCYTES ABSOLUTE COUNT (BEAKER) 0.35 K/ L 0.24-0.36 (test code = 415) EOSINOPHILS ABSOLUTE COUNT 0.09 K/ L 0.04-0.36 (BEAKER) (test code = 416) BASOPHILS ABSOLUTE COUNT (BEAKER) 0.02 K/ L 0.01-0.08 (test code = 417) IMMATURE GRANULOCYTES-RELATIVE 0 % 0-1 PERCENT (BEAKER) (test code = 2801) CREATINE KINASE (CK)2020-07-14 22:36:00 Test Item Value Reference Range Interpretation Comments CREATINE KINASE TOTAL (BEAKER) 15239 U/L 29-200 H (test code = 380) Creative Services Designer ID - BSSARS-CoV2/RT-PCR (Asymptomatic ONLY)2020-07-14 21:21:00 Test Item Value Reference Range Interpretation Comments SARS-COV2/RT-PCR Negative Not Detected, (test code = Negative, See 42420-0) external report for linked test SARS-COV-2 [facility] (test code = 09833-6) MARISA (test code = Negative result for this MARISA) test determines that SARS-CoV-2 RNA was not present in the [...] of the Act. Fact Sheet for Healthcare Providers:https://www.[employer]/sites/default/f miquel/product/documents/F act_Sheet_HC_Providers_L whb_EWND-OnB-0.pdf Fact Sheet for Healthcare Patients:https://www.niid.to/sites/default/fi les/product/documents/Fa ct_Sheet_Patients_Lyra_S ARS-CoV-2.pdf Performing Laboratory:[facility] [place] [address] [facility] ([facility])2020-07-14 21:21:00 Test Item Value Reference Range Interpretation Comments SARS-COV2/RT-PCR (test Negative Not Detected, Negative, code = 0381345) See external report for linked test SARS-COV-2 PERFORMING LAB [facility] (test code = 2937536) Negative result for this test determines that SARS-CoV-2 RNA was not present in the specimen above the Limit of Detection (LOD). However, Negative results do not preclude SARS-CoV-2 infection and should not be used as the sole basis for treatment or patient management decisions. Negative results mustbe combined with clinical observations, patient history, and epidemiological information. A false negative result may occur if a specimen is improperly collected, transported or handled. A false negative result should be considered if patient's recent exposures or clinical presentation indicate that COVID-19 (SARS-CoV-2) is likely and diagnostic tests for other causes of illness are negative. Re-testing should be considered in cases of suspected false negatives.The limit of detection for this assay is 800 copies/mL.This SARS CoV-2 test is a real-time RT-PCR test intended for the qualitative detection of nucleic acid from SARS-CoV-2 in a nasopharyngeal swab specimen collected from individuals susp ected of COVID-19 by their healthcare provider.This test has not been Food and Drug [...] is revoked under Section 564(g) of the Act.Fact Sheet for Healthcare Providers:https://www.[employer]/sites/default/files/product/documents/Fact_Shee c_SN_Yedwkkwho_Nuih_ESVQ-SjE-9.pdfFact Sheet for Healthcare Patients:https://www.[employer]/sites/default/files/product/ documents/Spcs_Ohmfm_Blhzfqrk_Uqog_JPNK-DnA-6.pdfPerforming Laboratory:[facility] [place] [address] 22908OMSZLDWC KINASE (CK) 2020-07-14 11:15:00 Test Item Value Reference Range Interpretation Comments CREATINE KINASE TOTAL (BEAKER) 68474 U/L 25-235 H (test code = 380) Rapid Troponin [id number] 10:55:00 Test Item Value Reference Range Interpretation Comments Rapid Troponin I (test code = 1483) <0.05 <0.05 ng/mL Lab Interpretation (test code = Normal 03045-3) [facility] [id number] 10:55:00 Test Item Value Reference Range Interpretation Comments RAPID TROPONIN I (BEAKER) (test code < ng/mL <0.05 = 1483) Urinalysis w/[id number] 10:51:00 Test Item Value Reference Range Interpretation Comments Color, UA (test code = 5778-6) Yellow Clarity, UA (test code = 5767-9) Clear Specific [place], UA (test code = 1.020 1.001-1.035 5811-5) pH, UA (test code = 5803-2) 7.0 5.0-8.0 Protein, UA (test code = 48782-3) Negative Negative Glucose, UA (test code = 365) Negative Negative Ketones, UA (test code = 2514-8) Negative Negative Bilirubin, UA (test code = 70759-0) Negative Negative Blood, UA (test code = 43890-3) Negative Negative Nitrite, UA (test code = 5802-4) Negative Negative Leukocytes, UA (test code = 5799-2) Negative Negative Urobilinogen, UA (test code = 1.0 mg/dL 0.2-1 39543-6) RBC, UA (test code = 799-7) None Seen /HPF WBC, UA (test code = 20212-5) None Seen /HPF SQUAMOUS EPITHELIAL (test code = <5 /HPF 76252-5) Specimen Source (test code = 2795) [facility]/ [id number] 10:51:00 Test Item Value Reference Range Interpretation Comments COLOR (BEAKER) (test code = Yellow 470) CLARITY (BEAKER) (test code = Clear 469) SPECIFIC GRAVITY UA (BEAKER) 1.020 1.001-1.035 (test code = 468) PH UA (BEAKER) (test code = 7.0 5.0-8.0 467) PROTEIN UA (BEAKER) (test code Negative Negative = 464) GLUCOSE UA (BEAKER) (test code Negative Negative = 365) KETONES UA (BEAKER) (test code Negative Negative = 371) BILIRUBIN UA (BEAKER) (test Negative Negative code = 462) BLOOD UA (BEAKER) (test code = Negative Negative 461) NITRITE UA (BEAKER) (test code Negative Negative = 465) LEUKOCYTE ESTERASE UA (BEAKER) Negative Negative (test code = 466) UROBILINOGEN UA (BEAKER) (test 1.0 mg/dL 0.2-1.0 code = 463) RBC UA-MANUAL (BEAKER) (test None Seen /HPF code = 1659) WBC UA-MANUAL (BEAKER) (test None Seen /HPF code = 1661) SQUAMOUS EPITHELIAL MANUAL <5 /HPF (BEAKER) (test code = 1663) SOURCE(BEAKER) (test code = 2795) Basic Metabolic [id number] 10:43:00 Test Item Value Reference Range Interpretation Comments Sodium (test code = 139 meq/L 355-185 5516-2) Potassium (test code = 3.2 meq/L 3.6-5.5 L 2823-3) Chloride (test code = 100 meq/L 98-106 2075-0) CO2 (test code = 31 meq/L 24-32 2028-9) BUN (test code = 13 mg/dL 10-26 3094-0) Creatinine (test code = 0.64 mg/dL 0.5-1.2 2160-0) Glucose (test code = 104 mg/dL 70-110 2345-7) Calcium (test code = 9.0 mg/dL 8.5-10.5 38361-8) EGFR (test code = 112 mL/min/1.73 [place] [address]-5) NOT ACCURATE CREATININE CLEARANCE IN PREDICTING GLOMERULAR FILTRATION RATE . ESTIMATED GFR I S NOT APPLICABLE FOR DIALYSIS PATIEN TS. Lab Interpretation Abnormal (test code = 72397-4) [facility] METABOLIC [id number] 10:43:00 Test Item Value Reference Range Interpretation Comments SODIUM (BEAKER) 139 meq/L 135-148 (test code = 381) POTASSIUM (BEAKER) 3.2 meq/L 3.6-5.5 L (test code = 379) CHLORIDE (BEAKER) 100 meq/L 98-106 (test code = 382) CO2 (BEAKER) (test 31 meq/L 24-32 code = 355) BLOOD UREA NITROGEN 13 mg/dL 10-26 (BEAKER) (test code = 354) CREATININE (BEAKER) 0.64 mg/dL 0.50-1.20 (test code = 358) GLUCOSE RANDOM 104 mg/dL 70-110 (BEAKER) (test code = 652) CALCIUM (BEAKER) 9.0 mg/dL 8.5-10.5 (test code = 697) EGFR (BEAKER) (test 112 mL/min/1.73 ESTIM ATED GFR IS code = 1092) sq m NOT ACCURATE CREATININE CLEARANCE IN PREDICTING GLOMERULAR FILTRATION RATE . ESTIMATED GFR I S NOT APPLICABLE FOR DIALYSIS PATIEN TS. CBC W/PLT COUNT & AUTO [id number] 10:31:00 Test Item Value Reference Range Interpretation Comments WHITE BLOOD CELL COUNT (BEAKER) 4.5 K/ L 4.0-10.0 (test code = 775) RED BLOOD CELL COUNT (BEAKER) 5.24 M/ L 4.00-5.00 H (test code = 761) HEMOGLOBIN (BEAKER) (test code = 14.5 GM/DL 12.0-15.0 410) HEMATOCRIT (BEAKER) (test code = 43.0 % 36.0-45.0 411) MEAN CORPUSCULAR VOLUME (BEAKER) 82.0 fL 82.0-99.0 (test code = 753) MEAN CORPUSCULAR HEMOGLOBIN 27.7 pg 27.0-33.0 (BEAKER) (test code = 751) MEAN CORPUSCULAR HEMOGLOBIN CONC 33.7 GM/DL 32.0-36.0 (BEAKER) (test code = 752) RED CELL DISTRIBUTION WIDTH 14.6 % 10.3-14.2 H (BEAKER) (test code = 412) PLATELET COUNT (BEAKER) (test 227 K/CU MM 150-430 code = 756) MEAN PLATELET VOLUME (BEAKER) 7.3 fL 6.5-10.5 (test code = 754) NEUTROPHILS RELATIVE PERCENT 51 % (BEAKER) (test code = 429) LYMPHOCYTES RELATIVE PERCENT 38 % (BEAKER) (test code = 430) MONOCYTES RELATIVE PERCENT 8 % (BEAKER) (test code = 431) EOSINOPHILS RELATIVE PERCENT 3 % (BEAKER) (test code = 432) BASOPHILS RELATIVE PERCENT 1 % (BEAKER) (test code = 437) NEUTROPHILS ABSOLUTE COUNT 2.30 K/ L 1.80-8.00 (BEAKER) (test code = 670) LYMPHOCYTES ABSOLUTE COUNT 1.68 K/ L 1.48-4.50 (BEAKER) (test code = 414) MONOCYTES ABSOLUTE COUNT (BEAKER) 0.35 K/ L 0.00-1.30 (test code = 415) EOSINOPHILS ABSOLUTE COUNT 0.11 K/ L 0.00-0.50 (BEAKER) (test code = 416) BASOPHILS ABSOLUTE COUNT (BEAKER) 0.03 K/ L 0.00-0.20 (test code = 417) ECG/EKG [id number] 10:25:19Lauro Millan 07/14/2020 12:16 PMECG/EKG InterpretationDate/Time: 07/14/2020 10:17 AMPerformedby: Brody MillaneAuthorized by: Lauro Millan The ECG was interpreted by ED physician. This ECG was not compared with previous ECG(s).The ECG is interpreted as sinus rhythm. Rate is normal rate. Heart rate is 76 BPM.Conduction: conduction normal. ST segments normal. T waves normal. [place] is normal. Other findings: no other findings. Clinical Impression: normal ECGECG reviewed and does not meetSTEMI criteria. Patient tolerance: Patient tolerated the procedure well with no immediate complicationsCHI [facility]
[2020-11-05] MEDS ORDERED: FENTANYL CITR 100 MCG/2 ML ONE (10:43)
--- NOTE | 2020-11-05 11:54 | RAD REPORT ---
EXAM DESCRIPTION: RAD - Hip Right 2 View - 11/05/2020 11:42 am CLINICAL HISTORY: Pain;Smash injury COMPARISON: No comparisons FINDINGS: A small fracture is seen avulsed from the anterior inferior iliac spine. This is typically related to the rectus femoris muscle. The right hip is intact.
--- NOTE | 2020-11-05 12:09 | EDPHYS ---
Physician Documentation [facility] Name: Darlene Tobias Age: 65 yrs Sex: Female : 1955 Arrival Date: 11/05/2020 Time: 10:12 Bed 20 Private MD: ED Physician Manny Pugh HPI: 11/05 11:17 This 65 yrs old Black Female presents to ER via EMS with complaints of Hip Pain. snw 11:17 The patient or guardian reports decreased range of motion, an injury, pain. that snw occurred at home, sustained from a fall, There is no obvious deformity, The patient is not able to ambulate. Patient is not able to bear weight. There is no radiation of the patient's discomfort. The complaints affect the right hip. Onset: The symptoms/episode began/occurred suddenly, just prior to arrival. Associated signs and symptoms: Loss of consciousness: the patient experienced no loss of consciousness. Severity of symptoms: At their worst the symptoms were moderate. The patient has not experienced similar symptoms in the past. It is unknown whether or not the patient has recently seen a physician. Historical: - Allergies: 10:20 atorvastatin; ca1 10:20 BACLOFEN; ca1 10:20 Hydrochlorothiazide; ca1 10:20 Mobic; ca1 - Home Meds: 10:20 Albuterol Inhl [Active]; amlodipine 10 mg tab 1 tab once daily [Active]; azathioprine ca1 50 mg Oral tab 1 tab 2 times per day [Active]; Calcarb 600 With Vitamin D 600 mg(1,500mg) -200 unit Oral tab [Active]; levalbuterol HCl 1.25 mg/3 mL inhalation nebu 3 mL every 6 hours [Active]; levothyroxine 100 mcg tab 1 tab once daily [Active]; multivitamin oral tab [Active]; montelukast 10 mg oral tab 1 tab once daily [Active]; omeprazole 40 mg Oral cpDR 1 cap once daily [Active]; prednisone 20 mg Oral tab 1 tab 3 times per day [Active]; - PMHx: 10:20 Hypertension; Migraines; Sleep Apnea; ca1 - PSHx: 10:20 Cholecystectomy; Appendectomy; ca1 - Immunization history:: Adult Immunizations not up to date, Pneumococcal vaccine is not up to date, Flu vaccine is not up to date. - Social history:: Smoking status: Patient denies any tobacco usage or history of. ROS: 11:16 Constitutional: Negative for fever, chills, and weight loss, Eyes: Negative for injury, snw pain, redness, and discharge, ENT: Negative for injury, pain, and discharge, Neck: Negative for injury, pain, and swelling, Cardiovascular: Negative for chest pain, palpitations, and edema, Respiratory: Negative for shortness of breath, cough, wheezing, and pleuritic chest pain, Abdomen/GI: Negative for abdominal pain, nausea, vomiting, diarrhea, and constipation, Back: Negative for injury and pain, : Negative for injury, bleeding, discharge, and swelling, Skin: Negative for injury, rash, and discoloration, Neuro: Negative for headache, weakness, numbness, tingling, and seizure, Psych: Negative for depression, anxiety, suicide ideation, homicidal ideation, and hallucinations. 11:16 MS/extremity: Positive for injury or acute deformity, decreased range of motion, pain, of the right hip. Exam: 10:54 Constitutional: This is a well developed, well nourished patient who is awake, alert, snw and in no acute distress. Head/Face: Normocephalic, atraumatic. Eyes: Pupils equal round and reactive to light, extra-ocular motions intact. Lids and lashes normal. Conjunctiva and sclera are non-icteric and not injected. Cornea within normal limits. Periorbital areas with no swelling, redness, or edema. ENT: Nares patent. No nasal discharge, no septal abnormalities noted. Tympanic membranes are normal and external auditory canals are clear. Oropharynx with no redness, swelling, or masses, exudates, or evidence of obstruction, uvula midline. Mucous membranes moist. Neck: Trachea midline, no thyromegaly or masses palpated, and no cervical lymphadenopathy. Supple, full range of motion without nuchal rigidity, or vertebral point tenderness. No Meningismus. Chest/axilla: Normal chest wall appearance and motion. Nontender with no deformity. No lesions are appreciated. Cardiovascular: Regular rate and rhythm with a normal S1 and S2. No gallops, murmurs, or rubs. Normal PMI, no JVD. No pulse deficits. Respiratory: Lungs have equal breath sounds bilaterally, clear to auscultation and percussion. No rales, rhonchi or wheezes noted. No increased work of breathing, no retractions or nasal flaring. Abdomen/GI: Soft, non-tender, with normal bowel sounds. No distension or tympany. No guarding or rebound. No evidence of tenderness throughout. Back: No spinal tenderness. No costovertebral tenderness. Full range of motion. Skin: Warm, dry with normal turgor. Normal color with no rashes, no lesions, and no evidence of cellulitis. Neuro: Awake and alert, GCS 15, oriented to person, place, time, and situation. Cranial nerves II-XII grossly intact. Motor strength 5/5 in all extremities. Sensory grossly intact. Cerebellar exam normal. Normal gait. Psych: Awake, alert, with orientation to person, place and time. Behavior, mood, and affect are within normal limits. 10:54 Musculoskeletal/extremity: Extremities: grossly normal except: noted in the right hip: decreased ROM, tenderness, Circulation is intact in all extremities. Sensation intact. Vital Signs: 10:13 BP 130 / 90; Pulse 57; Resp 16 S; Temp 97(TE); Pulse Ox 99% on R/A; Weight 108.41 kg ca1 (R); Height 5 ft. 9 in. (175.26 cm) (R); Pain 10/10; 11:20 BP 132 / 74; Pulse 91; Resp 16 S; Pulse Ox 100% on R/A; ca1 12:30 BP 130 / 80; Pulse 60; Resp 15 S; Pulse Ox 100% on R/A; ca1 10:13 Body Mass Index 35.29 (108.41 kg, 175.26 cm) ca1 MDM: 10:24 Patient medically screened. snw 12:10 Data reviewed: vital signs, nurses notes. Data interpreted: Pulse oximetry: on room air snw is 99 %. Interpretation: normal. Counseling: I had a detailed discussion with the patient and/or guardian regarding: the historical points, exam findings, and any diagnostic results supporting the discharge/admit diagnosis, the presence of at least one elevated blood pressure reading (>120/80) during this emergency department visit, radiology results, the need for outpatient follow up, to return to the emergency department if symptoms worsen or persist or if there are any questions or concerns that arise at home. Special discussion: I have referred the patient to see his PCP for further evaluation of high blood pressure. Based on the history and exam findings, there is no indication for further emergent testing or inpatient evaluation. I discussed with the patient/guardian the need to see the orthopedic surgeon for further evaluation of the symptoms. I discussed with the patient/guardian the need to see the primary care provider for further evaluation of the symptoms. 11/05 10:25 Order name: Hip Right 2 View XRAY; Complete Time: 12:03 snw Administered Medications: 10:34 Drug: fentaNYL (PF) 50 mcg {Note: rass 0.} Route: IVP; Site: left antecubital; ca1 11:20 Follow up: Response: No adverse reaction; Pain is decreased; RASS: Alert and Calm (0) ca1 13:10 Drug: Zofran (Ondansetron) 4 mg Route: IVP; Site: right antecubital; ca1 13:12 Follow up: Response: No adverse reaction; Nausea is decreased ca1 13:11 Drug: traMADol 50 mg {Note: rass 0.} Route: PO; ca1 13:12 Follow up: Response: Medication administered at discharge.; RASS: Alert and Calm (0) ca1 Disposition: 11/06 07:49 Co-signature as Attending Physician, Manny Pugh MD I agree with the assessment and kdr plan of care. Disposition: 11/05/20 12:09 Discharged to Home. Impression: Anterior inferior iliac spine fracture, Fall on same level from slipping, tripping and stumbling. - Condition is Stable. - Discharge Instructions: Fall Prevention in the Home, RICE for Routine Care of Injuries, Avulsion Fracture of the Anterior Inferior Iliac Spine. - Prescriptions for Tramadol 50 mg Oral Tablet - take 1 tablet by ORAL route every 8 hours as needed; 12 tablet. orphenadrine citrate 100 mg Oral Tablet Sustained Release - take 1 tablet by ORAL route 2 times per day As needed; 20 tablet. - Medication Reconciliation Form, Thank You Letter, Antibiotic Education, Prescription Opioid Use form. - Follow up: Emergency Department; When: As needed; Reason: Worsening of condition. Follow up: Private Physician; When: 2 - 3 days; Reason: Recheck today's complaints, Continuance of care, Re-evaluation by your physician. Signatures: Dispatcher [employer] EDManny Horton MD MD kdr Waters, Shelly, COCOA ROASTER-C COCOA ROASTER-Csnw Sindy Gonzalez, RN RN aa5 Katie Alexander RN RN ca1 Corrections: (The following items were deleted from the chart) 11/05 13:14 12:09 11/05/2020 12:09 Discharged to Home. Impression: Anterior inferior iliac spine ca1 fracture; Fall on same level from slipping, tripping and stumbling. Condition is Stable. Forms are Medication Reconciliation Form, Thank You Letter, Antibiotic Education, Prescription Opioid Use. Follow up: Emergency Department; When: As needed; Reason: Worsening of condition. Follow up: Private Physician; When: 2 - 3 days; Reason: Recheck today's complaints, Continuance of care, Re-evaluation by your physician. snw
--- NOTE | 2020-11-05 12:09 | ER ---
Nurse's Notes [facility] Name: Darlene Tobias Age: 65 yrs Sex: Female : 1955 Arrival Date: 11/05/2020 Time: 10:12 Bed 20 Private MD: Diagnosis: Anterior inferior iliac spine fracture;Fall on same level from slipping, tripping and stumbling Presentation: 11/05 10:13 Chief complaint: EMS states: R hip pain from fall this morning at 0830. No obvious hip ca1 rotation or shortening of the R leg. IV 20F LAC initiated, Gave Zofran 4MG IV, Fentanyl 100MCG IV. Coronavirus screen: Client denies travel out of the [place] in the last 14 days. At this time, the client does not indicate any symptoms associated with coronavirus-19. Ebola Screen: Patient negative for fever greater than or equal to 101.5 degrees Fahrenheit, and additional compatible Ebola Virus Disease symptoms Patient denies exposure to infectious person. Patient denies travel to an Ebola-affected area in the 21 days before illness onset. No symptoms or risks identified at this time. Initial Sepsis Screen: Does the patient meet any 2 criteria? No. Patient's initial sepsis screen is negative. Does the patient have a suspected source of infection? No. Patient's initial sepsis screen is negative. Risk Assessment: Do you want to hurt yourself or someone else? Patient reports no desire to harm self or others. Onset of symptoms was November 05, 2020. 10:13 Method Of Arrival: EMS: [facility] ca1 10:13 Acuity: BISI 4 ca1 Historical: - Allergies: 10:20 atorvastatin; ca1 10:20 BACLOFEN; ca1 10:20 Hydrochlorothiazide; ca1 10:20 Mobic; ca1 - Home Meds: 10:20 Albuterol Inhl [Active]; amlodipine 10 mg tab 1 tab once daily [Active]; azathioprine ca1 50 mg Oral tab 1 tab 2 times per day [Active]; Calcarb 600 With Vitamin D 600 mg(1,500mg) -200 unit Oral tab [Active]; levalbuterol HCl 1.25 mg/3 mL inhalation nebu 3 mL every 6 hours [Active]; levothyroxine 100 mcg tab 1 tab once daily [Active]; multivitamin oral tab [Active]; montelukast 10 mg oral tab 1 tab once daily [Active]; omeprazole 40 mg Oral cpDR 1 cap once daily [Active]; prednisone 20 mg Oral tab 1 tab 3 times per day [Active]; - PMHx: 10:20 Hypertension; Migraines; Sleep Apnea; ca1 - PSHx: 10:20 Cholecystectomy; Appendectomy; ca1 - Immunization history:: Adult Immunizations not up to date, Pneumococcal vaccine is not up to date, Flu vaccine is not up to date. - Social history:: Smoking status: Patient denies any tobacco usage or history of. Screenin:21 Abuse screen: Denies threats or abuse. Denies injuries from another. Nutritional ca1 screening: No deficits noted. Tuberculosis screening: No symptoms or risk factors identified. Fall Risk Fall in past 12 months (25 points). IV access (20 points). Total Hauser Fall Scale indicates Low Risk Score (25-44 pts). Fall prevention measures have been instituted. Side Rails Up X 2 As available Patient and Family Educated on Fall Prevention Program and strategies. Assessment: 10:21 General: Appears in no apparent distress. comfortable, Behavior is calm, cooperative, ca1 appropriate for age. Pain: Complains of pain in right hip Pain currently is 10 out of 10 on a pain scale. Pain began 2 hours ago. Neuro: Level of Consciousness is awake, alert, obeys commands, Oriented to person, place, time, situation. Derm: Skin is intact, is healthy with good turgor, Skin is pink, warm \T\ dry. Musculoskeletal: Circulation, motion, and sensation intact. Capillary refill < 3 seconds. 11:20 Reassessment: Patient appears in no apparent distress at this time. Patient and/or ca1 family updated on plan of care and expected duration. Pain level reassessed. Patient is alert, oriented x 3, equal unlabored respirations, skin warm/dry/pink. 12:29 Reassessment: Patient appears in no apparent distress at this time. Patient is alert, ca1 oriented x 3, equal unlabored respirations, skin warm/dry/pink. 13:00 Reassessment: Pt in the rest room. ca1 Vital Signs: 10:13 BP 130 / 90; Pulse 57; Resp 16 S; Temp 97(TE); Pulse Ox 99% on R/A; Weight 108.41 kg ca1 (R); Height 5 ft. 9 in. (175.26 cm) (R); Pain 10/10; 11:20 BP 132 / 74; Pulse 91; Resp 16 S; Pulse Ox 100% on R/A; ca1 12:30 BP 130 / 80; Pulse 60; Resp 15 S; Pulse Ox 100% on R/A; ca1 10:13 Body Mass Index 35.29 (108.41 kg, 175.26 cm) ca1 ED Course: 10:12 Patient arrived in ED. ca1 10:16 Triage completed. ca1 10:17 Marti Mcelroy FNP-C is PHCP. snw 10:17 Manny Pugh MD is Attending Physician. snw 10:20 Arm band placed on right wrist. ca1 10:21 Patient has correct armband on for positive identification. Bed in low position. Call ca1 light in reach. Side rails up X2. Pulse ox on. NIBP on. Warm blanket given. 10:26 Katie Alexander, RN is Primary Nurse. ca1 11:42 Hip Right 2 View XRAY In Process Unspecified. EDMS 12:30 No provider procedures requiring assistance completed. ca1 13:14 IV discontinued, intact, bleeding controlled, No redness/swelling at site. Pressure ca1 dressing applied. Administered Medications: 10:34 Drug: fentaNYL (PF) 50 mcg {Note: rass 0.} Route: IVP; Site: left antecubital; ca1 11:20 Follow up: Response: No adverse reaction; Pain is decreased; RASS: Alert and Calm (0) ca1 13:10 Drug: Zofran (Ondansetron) 4 mg Route: IVP; Site: right antecubital; ca1 13:12 Follow up: Response: No adverse reaction; Nausea is decreased ca1 13:11 Drug: traMADol 50 mg {Note: rass 0.} Route: PO; ca1 13:12 Follow up: Response: Medication administered at discharge.; RASS: Alert and Calm (0) ca1 Outcome: 12:09 Discharge ordered by . snw 13:14 Discharged to home via wheelchair, with significant other. ca1 13:14 Condition: stable 13:14 Discharge instructions given to patient, significant other, Instructed on discharge instructions, follow up and referral plans. no drinking with medication, no driving heavy equipment, medication usage, Demonstrated understanding of instructions, follow-up care, medications, Prescriptions given X 2. 13:14 Patient left the ED. ca1 Signatures: Dispatcher [employer] EDMS Marti Mcelroy, OFF PREMISE SERVICE REPRESENTATIVE-C OFF PREMISE SERVICE REPRESENTATIVE-Csnw Katie Alexander RN RN ca1 Corrections: (The following items were deleted from the chart) 12:53 12:30 IV discontinued, intact, bleeding controlled, No redness/swelling at site. ca1 Pressure dressing applied, ca1 12:30 Discharged to home via wheelchair, with significant other, ca1 ca1 12:30 Condition: stable ca1 ca1 12:30 Discharge instructions given to patient, significant other, Instructed on ca1 discharge instructions, follow up and referral plans. no drinking with medication, no driving heavy equipment, medication usage, Demonstrated understanding of instructions, follow-up care, medications, Prescriptions given X 2, ca1
[2020-11-05] MEDS ORDERED: TRAMADOL HCL 50 MG TAB ONE (13:03)
[2020-11-05] MEDS ORDERED: ONDANSETRON 4 MG/2 ML VIAL ONE (13:10)
[2020-11-06 10:24] VITALS: TEMP 97
[2020-11-06 10:25] VITALS: O2SAT 100
[2020-11-06 10:26] VITALS: BP 130/80
== END 2020-11-05 13:14 | disposition home or self-care (01) ==
LOC: ER 10:10
DX: S32.391A Other fracture of right ilium, initial encounter for closed fracture (principal); W01.0XXA Fall on same level from slipping, tripping and stumbling without subsequent striking against object, initial encounter; Y93.9 Activity, unspecified; Y92.009 Unspecified place in unspecified non-institutional (private) residence as the place of occurrence of the external cause; Z88.1 Allergy status to other antibiotic agents; Z88.5 Allergy status to narcotic agent; Z88.8 Allergy status to other drugs, medicaments and biological substances; I10 Essential (primary) hypertension
CPT/HCPCS: 73502; 99284; J3010; J2405

== ENCOUNTER 2021-05-02 00:48 | Emergency (ER) | payer OTHER ==
[2021-05-02 02:20] LABS: Absolute Lymphocytes (CBC) 1.5 K/uL (0.7-4.9); Basophils % 0.8 % (0-1.3); Lymphocytes % 28.8 % (15.3-44.8); MPV 8.2 fL (7.6-11.3); RBC Red Blood Cell Count 5.21 M/uL (3.86-4.86)
[2021-05-02 02:28] LABS: Protime INR 1.1
[2021-05-02 02:40] LABS: ALT/SGPT 27 U/L (12-78); AST/SGOT 19 U/L (15-37); Albumin 3.9 g/dL (3.4-5.0); Alkaline Phosphatase 129 U/L (45-117); BUN Blood Urea Nitrogen 12 mg/dL (7-18); Bicarbonate 25 mmol/L (21-32); Bilirubin Direct 0.1 mg/dL (0-0.2); Bilirubin Total 0.4 mg/dL (0.2-1.0); Glucose Level 92 mg/dL (74-106); Magnesium 2.5 mg/dL (1.8-2.4); NT PRO-BNP 11 pg/mL (<125); Protein, Total 7.8 g/dL (6.4-8.2); Sodium Level 142 mmol/L (136-145); Troponin (Emerg Dept Use Only) < 0.02 ng/mL (0.0-0.045)
--- NOTE | 2021-05-02 03:29 | EDPHYS ---
Physician Documentation [facility] Name: Darlene Tobias Age: 65 yrs Sex: Female : 1955 Arrival Date: 05/02/2021 Time: 00:50 Bed 20 Private MD: RYAN Physician Sukh Rodríguez HPI: 05/02 02:22 This 65 yrs old Black Female presents to ER via Ambulatory with complaints of Feet mh7 Swelling. 02:23 The patient presents with swelling. The complaints affect the right leg and left leg. mh7 Context: The problem was sustained at an unknown site, resulted from an unknown cause, the patient can fully bear weight, the patient is able to ambulate, without difficulty, Problem is a result from a previous injury: No. Onset: The symptoms/episode began/occurred yesterday. Modifying factors: The symptoms are alleviated by nothing. the symptoms are aggravated by nothing. Associated signs and symptoms: Pertinent positives: calf tenderness, swelling, Pertinent negatives fever, nausea, numbness, rash, tingling, vomiting, warmth, weakness. Treatment prior to arrival includes: no previous treatment. Severity of symptoms: At their worst the symptoms were moderate, yesterday, in the emergency department the symptoms are unchanged. Historical: - Allergies: 01:14 atorvastatin; bb 01:14 BACLOFEN; bb 01:14 Hydrochlorothiazide; bb 01:14 Mobic; bb - PMHx: 01:14 Hypertension; Migraines; Sleep Apnea; Hypothyroidism; bb - PSHx: 01:14 Appendectomy; Cholecystectomy; bb - Immunization history:: Adult Immunizations up to date. - Social history:: Smoking status: Patient denies any tobacco usage or history of. ROS: 02:23 Constitutional: Negative for fever, chills, and weight loss, Eyes: Negative for injury, mh7 pain, redness, and discharge, ENT: Negative for injury, pain, and discharge, Neck: Negative for injury, pain, and swelling, Cardiovascular: Negative for chest pain, palpitations, and edema, Respiratory: Negative for shortness of breath, cough, wheezing, and pleuritic chest pain, Abdomen/GI: Negative for abdominal pain, nausea, vomiting, diarrhea, and constipation, Back: Negative for injury and pain, : Negative for injury, bleeding, discharge, and swelling, Skin: Negative for injury, rash, and discoloration, Neuro: Negative for headache, weakness, numbness, tingling, and seizure, Psych: Negative for depression, anxiety, suicide ideation, homicidal ideation, and hallucinations, Allergy/Immunology: Negative for hives, rash, and allergies, Endocrine: Negative for neck swelling, polydipsia, polyuria, polyphagia, and marked weight changes, Hematologic/Lymphatic: Negative for swollen nodes, abnormal bleeding, and unusual bruising. Exam: 03:24 Constitutional: This is a well developed, well nourished patient who is awake, alert, mh7 and in no acute distress. Head/Face: Normocephalic, atraumatic. Eyes: Pupils equal round and reactive to light, extra-ocular motions intact. Lids and lashes normal. Conjunctiva and sclera are non-icteric and not injected. Cornea within normal limits. Periorbital areas with no swelling, redness, or edema. Neck: Trachea midline, no thyromegaly or masses palpated, and no cervical lymphadenopathy. Supple, full range of motion without nuchal rigidity, or vertebral point tenderness. No Meningismus. Chest/axilla: Normal chest wall appearance and motion. Nontender with no deformity. No lesions are appreciated. Cardiovascular: Regular rate and rhythm with a normal S1 and S2. No gallops, murmurs, or rubs. Normal PMI, no JVD. No pulse deficits. Respiratory: Lungs have equal breath sounds bilaterally, clear to auscultation and percussion. No rales, rhonchi or wheezes noted. No increased work of breathing, no retractions or nasal flaring. Abdomen/GI: Soft, non-tender, with normal bowel sounds. No distension or tympany. No guarding or rebound. No evidence of tenderness throughout. Back: No spinal tenderness. No costovertebral tenderness. Full range of motion. Skin: Warm, dry with normal turgor. Normal color with no rashes, no lesions, and no evidence of cellulitis. 03:24 Neuro: Awake and alert, GCS 15, oriented to person, place, time, and situation. Cranial nerves II-XII grossly intact. Motor strength 5/5 in all extremities. Sensory grossly intact. Cerebellar exam normal. Normal gait. Psych: Awake, alert, with orientation to person, place and time. Behavior, mood, and affect are within normal limits. 03:24 Musculoskeletal/extremity: Extremities: noted in the right leg and left leg: swelling, mild, ROM: intact in all extremities, Circulation is intact in all extremities. Sensation intact. Compartment Syndrome exam of affected extremity: is normal. no pain, no numbness, no tingling, no sensation deficit, no palor, no weak pulses, Joints: All joints appear normal with full range of motion. Weight bearing: able to fully bear weight, without difficulty, Tendon exam: specific tendon testing normal through active and passive range of motion DVT Exam: no tenderness, negative Homans' sign noted on exam, no appreciated bluish discoloration, no erythema, no increased warmth, swelling, that is mild, of the right leg, of the left leg. Vital Signs: 01:12 BP 124 / 68; Pulse 84; Resp 16 S; Temp 98(O); Pulse Ox 100% on R/A; Weight 117.93 kg bb (R); Height 5 ft. 8 in. (172.72 cm) (R); Pain 7/10; 01:15 BP 108 / 67; Pulse 75; Resp 18; Pulse Ox 98% on R/A; Pain 7/10; fu 03:07 BP 121 / 80; Pulse 69; Resp 14; Pulse Ox 97% on R/A; fu 01:12 Body Mass Index 39.53 (117.93 kg, 172.72 cm) bb MDM: 03:24 Differential diagnosis: DVT, Cellulitis, Pedal Edema. Data reviewed: vital signs, [facility] nurses notes, lab test result(s), cardiac enzymes, CBC, electrolytes, EKG, radiologic studies, plain films, ultrasound. Data interpreted: Pulse oximetry: on room air is 97 %. Interpretation: normal. Counseling: I had a detailed discussion with the patient and/or guardian regarding: the historical points, exam findings, and any diagnostic results supporting the discharge/admit diagnosis, lab results, radiology results, the need for outpatient follow up, to return to the emergency department if symptoms worsen or persist or if there are any questions or concerns that arise at home. Response to treatment: the patient's symptoms have mildly improved after treatment. 03:28 Patient medically screened. [facility] 05/02 01:50 Order name: Basic Metabolic Panel [facility] 05/02 01:50 Order name: CBC with Diff; Complete Time: 02:56 mh05/02 01:50 Order name: LFT's; Complete Time: 02:56 05/02 01:50 Order name: Magnesium; Complete Time: 02:56 05/02 01:50 Order name: NT PRO-BNP; Complete Time: 02:56 05/02 01:50 Order name: PT-INR; Complete Time: 02:56 05/02 01:50 Order name: Troponin (emerg Dept Use Only); Complete Time: 02:56 05/02 01:50 Order name: XRAY Chest (1 view) 05/02 01:50 Order name: EKG; Complete Time: 01:51 05/02 01:50 Order name: Cardiac monitoring; Complete Time: 02:11 05/02 01:50 Order name: EKG - Nurse/Tech; Complete Time: 02:11 05/02 01:50 Order name: IV Saline Lock; Complete Time: 02:03 05/02 01:51 Order name: Basic Metabolic Panel; Complete Time: 02:45 EDOH 05/02 02:23 Order name: US Extremity Venous W Compression Mikael 05/02 01:50 Order name: Labs collected and sent; Complete Time: 02:03 05/02 01:50 Order name: O2 Per Protocol; Complete Time: 02:03 05/02 01:50 Order name: O2 Sat Monitoring; Complete Time: 02:03 mh7 Administered Medications: No medications were administered Disposition: 05/02/21 03:28 Discharged to Home. Impression: Peripheral Edema. - Condition is Stable. - Discharge Instructions: Peripheral Edema. - Medication Reconciliation Form, Thank You Letter, Antibiotic Education, Prescription Opioid Use form. - Follow up: Private Physician; When: 1 - 2 days; Reason: Worsening of condition, Recheck today's complaints, Continuance of care, Re-evaluation by your physician. - Problem is new. - Symptoms have improved. Signatures: Dispatcher [employer] EDJesica Cai RN RN Patrick Orellana, TRIAGE CLINICIAN-C TRIAGE CLINICIAN-Cla1 Chava Lopez RN RN fu Holmes, Maurice, MD MD 7 Corrections: (The following items were deleted from the chart) 03:46 03:28 05/02/2021 03:28 Discharged to Home. Impression: Peripheral Edema. Condition is fu Stable. Forms are Medication Reconciliation Form, Thank You Letter, Antibiotic Education, Prescription Opioid Use. Follow up: Private Physician; When: 1 - 2 days; Reason: Worsening of condition, Recheck today's complaints, Continuance of care, Re-evaluation by your physician. Problem is new. Symptoms have improved. mh7
--- NOTE | 2021-05-02 03:29 | ER ---
Nurse's Notes [facility] Name: Darlene Tobias Age: 65 yrs Sex: Female : 1955 Arrival Date: 05/02/2021 Time: 00:50 Bed 20 Private MD: Diagnosis: Peripheral Edema Presentation: 05/02 01:12 Chief complaint: Patient states: she has swelling to both feet starting last night. bb Coronavirus screen: At this time, the client does not indicate any symptoms associated with coronavirus-19. Ebola Screen: No symptoms or risks identified at this time. Initial Sepsis Screen: Does the patient meet any 2 criteria? No. Patient's initial sepsis screen is negative. Does the patient have a suspected source of infection? No. Patient's initial sepsis screen is negative. Risk Assessment: Do you want to hurt yourself or someone else? Patient reports no desire to harm self or others. Onset of symptoms was May 01, 2021. 01:12 Method Of Arrival: Ambulatory bb 01:12 Acuity: BISI 3 bb Historical: - Allergies: 01:14 atorvastatin; bb 01:14 BACLOFEN; bb 01:14 Hydrochlorothiazide; bb 01:14 Mobic; bb - PMHx: 01:14 Hypertension; Migraines; Sleep Apnea; Hypothyroidism; bb - PSHx: 01:14 Appendectomy; Cholecystectomy; bb - Immunization history:: Adult Immunizations up to date. - Social history:: Smoking status: Patient denies any tobacco usage or history of. Screenin:32 Abuse screen: Denies threats or abuse. Nutritional screening: No deficits noted. fu Tuberculosis screening: No symptoms or risk factors identified. Fall Risk None identified. Assessment: 01:29 General: Appears in no apparent distress. Behavior is calm, cooperative, appropriate fu for age, Denies fever, feeling ill, fatigue, chills. Pain: Complains of pain in bilateral legs Pain does not radiate. Pain currently is 7 out of 10 on a pain scale. Quality of pain is described as burning, Pain began 1 day ago. Is continuous. 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 Gait is steady, Speech is normal, Facial symmetry appears normal. Cardiovascular: Denies chest pain, nausea, vomiting. Respiratory: Respiratory effort is even, unlabored, Respiratory pattern is regular. GI: No signs and/or symptoms were reported involving the gastrointestinal system. : No signs and/or symptoms were reported regarding the genitourinary system. EENT: No signs and/or symptoms were reported regarding the EENT system. Derm: Skin is intact, Reports swelling and pain on both legs. 02:00 Reassessment: Patient and/or family updated on plan of care and expected duration. Pain fu level reassessed. Patient is alert, oriented x 3, equal unlabored respirations, skin warm/dry/pink. 03:00 Reassessment: Patient and/or family updated on plan of care and expected duration. Pain fu level reassessed. Patient is alert, oriented x 3, equal unlabored respirations, skin warm/dry/pink. Vital Signs: 01:12 BP 124 / 68; Pulse 84; Resp 16 S; Temp 98(O); Pulse Ox 100% on R/A; Weight 117.93 kg bb (R); Height 5 ft. 8 in. (172.72 cm) (R); Pain 7/10; 01:15 BP 108 / 67; Pulse 75; Resp 18; Pulse Ox 98% on R/A; Pain 7/10; fu 03:07 BP 121 / 80; Pulse 69; Resp 14; Pulse Ox 97% on R/A; fu 01:12 Body Mass Index 39.53 (117.93 kg, 172.72 cm) ED Course: 00:50 Patient arrived in ED. bp1 01:13 Sukh Rodríguez MD is Attending Physician. 7 01:14 Triage completed. bb 01:14 Arm band placed on Patient placed in an exam room, on a stretcher, on pulse oximetry. bb 01:24 Chava Lopez, RN is Primary Nurse. fu 01:32 Patient has correct armband on for positive identification. Call light in reach. fu audit spec on. Pulse ox on. NIBP on. 02:03 Inserted saline lock: 22 gauge in right forearm, using aseptic technique. Blood ea collected. 02:06 Basic Metabolic Panel Sent. fu 02:09 XRAY Chest (1 view) In Process Unspecified. EDMS 02:56 US Extremity Venous W Compression Mikael In Process Unspecified. EDMS 02:56 Ultrasound completed. Patient tolerated well. Notified ED Physician . sg3 03:44 No provider procedures requiring assistance completed. fu 03:45 IV discontinued, bleeding controlled, Pressure dressing applied. fu Administered Medications: No medications were administered Outcome: 03:28 Discharge ordered by . yosi 03:45 Discharged to home ambulatory, with family. fu 03:45 Condition: good 03:45 Discharge instructions given to patient, Instructed on discharge instructions, follow up and referral plans. Demonstrated understanding of instructions, follow-up care, Prescriptions given X 0 03:46 Patient left the ED. fu Signatures: Dispatcher [employer] EDMS Jesica Mock, RN RN Justina Pires RN RN Chava Smith, RN RN Cinthya Cabello sg3 Yecenia Blevins Maurice, MD MD 7 Corrections: (The following items were deleted from the chart) 02:21 01:32 Pulse ox on. NIBP on. fu fu
[2021-05-02 03:53] VITALS: TEMP 98
[2021-05-02 03:56] VITALS: BP 121/80; O2SAT 97
--- NOTE | 2021-05-02 11:03 | RAD REPORT ---
EXAM DESCRIPTION: US - Extrem Venous W Compress Mikael - 05/02/2021 2:56 am CLINICAL HISTORY: SWELLING Bilateral leg edema and swelling. COMPARISON: No comparisons TECHNIQUE: Real-time sonographic interrogation of the left and right lower extremity deep venous sys tems was performed. FINDINGS: Normal compressibility, flow augmentation, phasic flow and spontaneous flow is identified in both the left and right lower extremity deep venous systems. IMPRESSION: No sonographic evidence of left or right lower extremity deep venous thrombosis.
--- NOTE | 2021-05-02 11:57 | RAD REPORT ---
EXAM DESCRIPTION: RAD - Chest Single View - 05/02/2021 2:09 am CLINICAL HISTORY: SWELLING Chest pain. COMPARISON: Chest Single View dated 11/23/2018 FINDINGS: Portable technique limits examination quality. The lungs are grossly clear. The heart is normal in size. No displaced fractures. IMPRESSION: No acute intrathoracic process suspected.
== END 2021-05-02 03:46 | disposition home or self-care (01) ==
LOC: ER 00:48
DX: R60.0 Localized edema (principal); I10 Essential (primary) hypertension; Z88.1 Allergy status to other antibiotic agents; Z88.8 Allergy status to other drugs, medicaments and biological substances
CPT/HCPCS: 36415; 71045; 80048; 80076; 83735; 83880; 84484; 85025; 85610; 93005; 93970; 99284

== ENCOUNTER 2025-03-30 18:24 | Observation (INO) | payer MEDICAID, OTHER ==
[2025-03-30] MEDS ORDERED: MECLIZINE HCL 12.5 MG TAB ONE (19:22)
[2025-03-30 19:53] LABS: D-Dimer 0.713 FEUug/mL (0-0.500); PT Prothrombin Time 11.1 SECONDS (10-13.0); Protime INR 0.97
--- NOTE | 2025-03-30 19:59 | RAD REPORT ---
EXAM: CT brain without contrast HISTORY: DIZZINESS COMPARISON: 07/20/2024 TECHNIQUE: Multiple contiguous axial images were obtained and a CT of the brain without contrast. Sag ittal and coronal reformats were performed. One or more of the following dose reduction techniques were used: Automated exposure control, adjust ment of the mA and/or kV according to patient size, and/or iterative reconstruction. FINDINGS: No evidence of hydrocephalus, intracranial hemorrhage, or extra-axial fluid collection. The brain is normal in morphology. No evidence of midline shift or areas of brain edema. The calvarium is intact. The visualized paranasal sinuses and mastoid air cells are essentially clear . IMPRESSION: No evidence of acute intracranial abnormality.
--- NOTE | 2025-03-30 20:06 | RAD REPORT ---
EXAMINATION: ONE VIEW CHEST XR CLINICAL INDICATION: CHEST PAIN TECHNIQUE: Frontal chest projection is submitted. Examination is limited by patient positioning and t echnique. COMPARISON: 05/02/2021 FINDINGS: The lungs are well inflated and clear. The heart is upper limit of normal in size. No displaced fract ures identified. IMPRESSION: No acute intrathoracic abnormalities.
[2025-03-30 20:07] LABS: ALT/SGPT 18 U/L (13-56); AST/SGOT 11 U/L (15-37); Albumin 3.8 g/dL (3.4-5.0); Alkaline Phosphatase 81 U/L (45-117); Anion Gap 9.4 mEq/L (5.0-15.0); BUN Blood Urea Nitrogen 14 mg/dL (7-18); Bicarbonate 26 mEq/L (21-32); Bilirubin Total 0.3 mg/dL (0.2-1.0); Globulin 3.9 g/dL (2.3-3.5); Glomerular Filtration Rate 49 ml/min (=/>90); Glucose Level 107 mg/dL (74-106); Magnesium 2.1 mg/dL (1.6-2.4); NT PRO-BNP 24 pg/mL (<125); Potassium 3.4 mEq/L (3.5-5.1); Protein, Total 7.7 g/dL (6.4-8.2); Sodium Level 139 mEq/L (136-145); Troponin High Sensitivity 3.5 pg/mL (<58.9)
[2025-03-30 20:19] LABS: Bilirubin Direct < 0.2 mg/dL (0-0.2); Bilirubin Indirect, Calculated 0.1 mg/dL (0.2-0.8)
[2025-03-30 20:27] LABS: Absolute Eosinophils 0.1 K/uL (0-0.5); Absolute Lymphocytes (CBC) 1.4 K/uL (0.7-4.9); Absolute Monocytes 0.5 K/uL (0.1-1.3); Absolute Neutrophil 4.2 K/uL (1.8-8.0); Basophils % 0.7 % (0-1.3); Hematocrit 41.3 % (36.0-45.0); Lymphocytes % 22.8 % (15.3-44.8); MCH 28.7 pg (27.0-35.0); MCV 84.4 fL (80-100); MPV 8.6 fL (7.6-11.3); Monocytes % 7.5 % (3.3-12.3); Platelets 196 thou/uL (152-406); RBC Red Blood Cell Count 4.89 M/uL (3.86-4.86); Red Cell Distribution Width 14.1 % (12.1-15.2)
[2025-03-30 21:09] LABS: Specific Gravity 1.015 (1.005-1.030); Urine Bilirubin NEGATIVE (Negative); Urine Blood Negative (Negative); Urine Clarity Clear (Clear); Urine Color Light-Yellow (Yellow); Urine Glucose NEGATIVE (Negative); Urine Ketones NEGATIVE (Negative); Urine Microscopic Reflex YN NO UMIC; Urine Nitrite NEGATIVE (Negative); Urine Protein NEGATIVE (Negative); Urine Urobilinogen 1+ (Normal); Urine pH 6.5 (5.0-7.0)
--- NOTE | 2025-03-30 21:21 | RAD REPORT ---
EXAMINATION: CTA CHEST PE CLINICAL INDICATION: near syncope TECHNIQUE: This examination was performed according to an angiographic protocol with 3D post-processi ng. This involves 3D reconstructions, MIPs, volume rendered images and/or shaded surface rendering. One or more of the following dose reduction techniques were used: Automated exposure control, adjustm ent of the mA and/or kV according to patient size, and/or iterative reconstruction. Unless otherwise specified, incidental findings do not require dedicated imaging follow-up. COMPARISON: No prior exam. FINDINGS: PULMONARY ARTERIES: Normal caliber. No evidence of pulmonary emboli to the subsegmental level. THORACIC AORTA: Normal caliber and configuration. LUNGS: No evidence of airspace or interstitial process. No nodules. PLEURA: No pleural effusion. No pneumothorax. MEDIASTINUM AND LYMPH NODES: No mediastinal mass or fluid collection. Normal size mediastinal, hilar, and axillary lymph nodes. OSSEOUS STRUCTURES AND CHEST WALL: Intact. UPPER ABDOMEN: No significant abnormalities. IMPRESSION: No evidence of pulmonary emboli to the subsegmental level.
[2025-03-30] MEDS ORDERED: POTASSIUM 25 MEQ EFFERV TAB ONE (21:51)
--- NOTE | 2025-03-30 22:51 | EDPHYS ---
Physician Documentation [facility] Name: Darlene Tobias Age: 69 yrs Sex: Female : 1955 Arrival Date: 03/30/2025 Time: 18:24 Bed 4 Private MD: ED Physician Eyad Razo HPI: 03/30 19:10 This 69 yrs old Black Female presents to ER via EMS with complaints of General Weakness.cp 19:10 The patient's problem is reported as visual difficulty, blurred vision, weakness, that cp is generalized, near syncope. Onset: The symptoms/episode began/occurred 5 day(s) ago. Duration: The episode is continuous, the symptoms became worse today. Associated signs and symptoms: Pertinent positives: unsteady when walking, Pertinent negatives: abdominal pain, chest pain, confusion, diaphoresis. Patient's baseline: Neuro: alert and fully oriented, Motor: no deficits, Ambulation: walks without assistance, Speech: normal. Historical: - Allergies: 18:29 atorvastatin; me1 18:29 Baclofen; me1 18:29 hydrochlorothiazide; me1 18:29 Mobic; me1 - Home Meds: 19:43 Albuterol Inhl [Active]; alendronate oral every week [Active]; azathioprine 50 mg Oral lg3 tablet daily [Active]; benzonatate 200 mg oral capsule 3 times per day [Active]; Calcarb 600 With Vitamin D 600 mg(1 Oral tab [Active]; Aimovig Autoinjector subcutaneous every month [Active]; ezetimibe 10 mg oral tablet daily [Active]; hydrochlorothiazide 12.5 mg Oral tablet daily [Active]; levothyroxine 100 mcg tab 1 tab once daily [Active]; losartan 50 mg oral tablet twice a day [Active]; metformin 500 mg Oral tablet 2 times per day [Active]; Singulair 10 mg Oral tablet every evening [Active]; omeprazole 20 mg oral capsule,delayed release (e.c.) daily [Active]; - PMHx: 18:29 Hypertension; Hypothyroidism; Migraines; Sleep Apnea; Diabetes mellitus; me1 - PSHx: 18:29 None; me1 - Immunization history:: Adult Immunizations unknown. - Infectious Disease History:: Denies. - Social history:: Smoking status: Patient denies any tobacco usage or history of. ROS: 19:15 Constitutional: Negative for body aches, chills, fever, poor PO intake, cp 19:15 Eyes: Positive for blurry vision, cp 19:15 ENT: Negative for drainage from ear(s), ear pain, sore throat, difficulty swallowing, difficulty handling secretions, 19:15 Cardiovascular: Negative for chest pain, edema, palpitations, 19:15 Respiratory: Negative for cough, shortness of breath, wheezing, 19:15 Abdomen/GI: Negative for abdominal pain, vomiting, diarrhea, constipation, black/tarry stool, rectal bleeding, 19:15 : Negative for urinary symptoms, 19:15 Neuro: Positive for dizziness, near syncope, weakness, unsteady gait, Negative for altered mental status, headache, 19:15 All other systems are negative, Exam: 19:13 ECG was reviewed by the Attending Physician. cp 19:20 Constitutional: The patient appears in no acute distress, alert, awake, cp non-diaphoretic, non-toxic, well developed, well nourished, 19:20 Head/Face: Normocephalic, atraumatic. cp 19:20 Eyes: Periorbital structures: appear normal, Pupils: equal, round, and reactive to light and accomodation, Extraocular movements: intact throughout, Conjunctiva: normal, no exudate, no injection, Sclera: no appreciated abnormality, Lids and lashes: appear normal, bilaterally, 19:20 ENT: External ear(s): are unremarkable, Ear canal(s): are normal, clear, TM's: dullness, bilaterally, Nose: is normal, Mouth: Lips: moist, Oral mucosa: moist, Posterior pharynx: Airway: no evidence of obstruction, patent, erythema, is not appreciated, exudate, is not appreciated, 19:20 Neck: ROM/movement: is normal, is supple, without pain, no range of motions limitations, no meningismus, no nuchal rigidity, 19:20 Chest/axilla: Inspection: normal, 19:20 Cardiovascular: Rate: bradycardic, Rhythm: regular, Edema: is not appreciated, JVD: is not appreciated, 19:20 Respiratory: the patient does not display signs of respiratory distress, Respirations: cp normal, no use of accessory muscles, no retractions, labored breathing, is not present, Breath sounds: are clear throughout, no decreased breath sounds, no stridor, no wheezing, 19:20 Abdomen/GI: Inspection: abdomen appears normal, Palpation: abdomen is soft and non-tender, in all quadrants, 19:20 Back: pain, is absent, ROM is normal, 19:20 Skin: cellulitis, is not appreciated, no rash present. 19:20 Neuro: Orientation: to person, place \T\ time. Mentation: is normal, Cerebellar function: Romberg testing is negative, normal finger to nose testing, Motor: moves all fours, no focal deficits, Sensation: no obvious gross deficits, 20:23 Radiologist reports: no acute findings cp Vital Signs: 18:26 BP 134 / 82; Pulse 52; Resp 17; Temp 98.5; Pulse Ox 100% ; Weight 104.33 kg; Height 5 me1 ft. 9 in. ; Pain 0/10; 18:30 BP 122 / 84; Pulse 54; Resp 18; Pulse Ox 100% ; mo1 19:15 BP 118 / 73; Pulse 46; Resp 16 S; Pulse Ox 100% on R/A; lg3 20:15 BP 143 / 96; Pulse 52; Resp 17 S; Pulse Ox 100% on R/A; lg3 21:31 BP 151 / 93; Pulse 59; Resp 17 S; Pulse Ox 100% on R/A; lg3 23:18 BP 134 / 90; Pulse 65; Resp 17 S; Pulse Ox 98% on R/A; lg3 18:26 Body Mass Index 33.96 (104.33 kg, 175.26 cm) mo1 18:26 Pain Scale: Adult me1 NIH Stroke Scale Scores: 19:15 NIHSS Score: 0 cp MDM: 20:00 Differential diagnosis: CVA, TIA, metabolic disorder, drug effects, arrythmia. cp 22:25 Data reviewed: vital signs, nurses notes, lab test result(s), EKG, radiologic studies, cp CT scan, plain films, and as a result, I will admit patient. 22:25 Management of patient was discussed with the following: Hospitalist: Norah who will cp admit after discussion. I considered the following discharge prescriptions or medication management in the emergency department Medications were administered in the Emergency Department. See MAR. Independent interpretation of the following test(s) in the Emergency Department EKG: See my EKG interpretation above. Care significantly affected by the following chronic conditions: Diabetes, Hypertension. Counseling: I had a detailed discussion with the patient and/or guardian regarding the historical points, exam findings, and any diagnostic results supporting the discharge/admit diagnosis, lab results, radiology results, the need for further work-up and treatment in the hospital. Response to treatment: the patient's symptoms have mildly improved after treatment. 22:51 Medical Screening Exam initiated 03/30 19:10 Order name: Basic Metabolic Panel; Complete Time: 20:21 [facility] 03/30 20:21 Interpretation: Normal except: K 3.4; GLUC 107; CRE 1.18; GFR 49. 03/30 19:10 Order name: CBC with Diff; Complete Time: 20:43 [facility] 03/30 19:10 Order name: D-Dimer; Complete Time: 20:21 [facility] 03/30 19:10 Order name: LFT's; Complete Time: 20:21 [facility] 03/30 19:10 Order name: Magnesium; Complete Time: 20: [facility] 03/30 19:10 Order name: NT PRO-BNP; Complete Time: 20:21 [facility] 03/30 19:10 Order name: PT-INR; Complete Time: 20:21 [facility] 03/30 19:10 Order name: Troponin HS; Complete Time: 20: [facility] 03/30 19:15 Order name: UA Rfx Laurent Cult if indicated; Complete Time: 21:29 03/30 21:30 Interpretation: Normal except: UUROB 1+. 03/30 19:21 Order name: CK; Complete Time: 20:21 03/30 21:31 Order name: Troponin High Sensitivity; Complete Time: 00:26 03/31 07:48 Order name: Glucose, Ancillary Testing; Complete Time: 00:26 [facility] 03/30 19:10 Order name: XRAY Chest (1 view); Complete Time: 20:21 [facility] 03/30 20:22 Interpretation: Report review. 03/30 19:15 Order name: CT Head Brain wo Cont; Complete Time: 20:21 03/30 20:22 Interpretation: Report reviewed. 03/30 20:44 Order name: CT Chest For PE Angio; Complete Time: 21:29 03/30 21:30 Interpretation: Report reviewed. 03/31 00:12 Order name: Echo with Doppler [facility] 03/31 00:12 Order name: Echo with Doppler [facility] 03/31 00:08 Order name: Physical Therapy Consult [facility] 03/30 19:10 Order name: Cardiac monitoring; Complete Time: 19:10 [facility] 03/30 19:10 Order name: EKG - Nurse/Tech; Complete Time: 19: [facility] 03/30 19:10 Order name: IV Saline Lock; Complete Time: 19: [facility] 03/30 19:10 Order name: Labs collected and sent; Complete Time: : [facility] 03/30 19:10 Order name: O2 Per Protocol; Complete Time: : [facility] 03/30 19:10 Order name: O2 Sat Monitoring; Complete Time: : [facility] 03/30 19:15 Order name: Accucheck Blood Glucose; Complete Time: 19:31 cp EC:13 Rate is 51 beats/min. Rhythm is regular. AR interval is normal. QRS interval is cp prolonged at 106 msec. QT interval is normal. T waves are Inverted in lead aVR. Interpreted by me. Reviewed by me. Administered Medications: 19:29 Drug: Meclizine PO 25 mg PO once Route: PO; lg3 21:36 Follow up: Response: No adverse reaction lg3 22:20 Drug: Potassium PO Effervescent Tablet 50 mEq PO once; dissolve in 4 ounces of water or lg3 juice Route: PO; 23:19 Follow up: Response: No adverse reaction lg3 Disposition: 04/01 00:32 Chart complete. cp Disposition Summary: 03/30/25 22:51 Hospitalization Ordered Notes: Hospitalization Status: Inpatient Admission cp Provider: Anna Wang cp Condition: Stable cp Problem: new cp Symptoms: have improved cp Bed/Room Type: Standard cp Location: Intensive Care Unit(03/31/25 07:33) 6 Room Assignment: 1-(03/31/25 07:33) [facility] Diagnosis - Other abnormalities of gait and mobility cp - Dizziness and giddiness cp - Syncope Near cp - Bradycardia, unspecified cp Forms: - Medication Reconciliation Form cp - SBAR form cp - Leadership Thank You Letter cp NIH Stroke Scale - NIH Stroke Score Date: 03/30/2025 Time: 19:15 Total Score = 0 10. Dysarthria (speech clarity - read or repeat words) - 0(Normal) 11. Extinction and Inattention (visual/tactile/auditory/spatial/personal) - 0(No abnormality) 1a. Level of Consciousness (LOC) - 0(Alert) 1b. Level of Consciousness (LOC) (Month \T\ Age) - 0(Both) 1c. LOC Commands (Open \T\ Closes Eyes/Invasive Physician) - 0(Both) 2. Best Gaze (Lateral Gaze Paresis) - 0(Normal) 3. Visual Field Loss - 0(No visual loss) 4. Facial Palsy - 0(Normal) 5a. Left Arm: Motor (10-second hold) - 0(No drift) 5b. Right Arm: Motor (10-second hold) - 0(No drift) 6a. Left Leg: Motor (5-second hold - always test supine) - 0(No drift) 6b. Right Leg: Motor (5-second hold - always test supine) - 0(No drift) 7. Limb Ataxia (finger/nose \T\ heel/sal - test with eyes open) - 0(Absent) 8. Sensory Loss (pinprick arms/legs/face) - 0(Normal) 9. Best Language: Aphasia (description/naming/reading) - 0(No aphasia) Initials: cp Signatures: Dispatcher [employer] EDMS Erich Levin PA PA cp Milly Bowden, RN RN lg3 Paulette Dumont, RN RN ha1 Mallorie Moody bc6 Ana Paula Platt RN RN me1 Tre Monzon, RN RN bm8 Corrections: (The following items were deleted from the chart) 03/30 19:11 19:11 BASIC METABOLIC PANEL+C.LAB.BRZ ordered. EDMS EDMS 19:11 19:11 CBC+H.LAB.BRZ ordered. EDMS EDMS 19:11 19:11 D-DIMER+COAG.LAB.BRZ ordered. EDMS EDMS 19:11 19:11 HEPATIC FUNCTION+C.LAB.BRZ ordered. EDMS EDMS 19:11 19:11 MAGNESIUM+C.LAB.BRZ ordered. EDMS EDMS 19:11 19:11 PROBNP+C.LAB.BRZ ordered. EDMS EDMS 19:11 19:11 PROTIME (+INR)+COAG.LAB.BRZ ordered. EDMS EDMS 19:11 19:11 Troponin High Sensitivity+C.LAB.BRZ ordered. EDMS EDMS 19:11 Chest Single View+RAD.RAD.BRZ ordered. EDMS EDMS 22:51 Telemetry/MedSurg (Inpatient) cp ha1 : 22:51 cp ha1 03/31 07:33 03/30 23:11 [facility] ER HOLD ha1 bc6 03/31 07:33 03/30 23:11 ERHOLD- ha1 bc6
--- NOTE | 2025-03-30 22:51 | ER ---
Nurse's Notes [facility] Name: Darlene Tobias Age: 69 yrs Sex: Female : 1955 Arrival Date: 03/30/2025 Time: 18:24 Bed 4 Private MD: Diagnosis: Other abnormalities of gait and mobility;Dizziness and giddiness;Syncope Near;Bradycardia, unspecified Presentation: 03/30 18:26 Chief complaint: EMS states: toned out for generalized weakness. c/o intermittent me1 dizziness, blurred vision and generalized weakness for 5 days. Reports she almost passed out tonight when trying to eat dinner and decided to come to the ER. BGL 96. Coronavirus screen: Vaccine status: Patient reports being unvaccinated. Ebola Screen: No symptoms or risks identified at this time. Initial Sepsis Screen: Does the patient meet any 2 criteria? No. Patient's initial sepsis screen is negative. Does the patient have a suspected source of infection? No. Patient's initial sepsis screen is negative. Risk Assessment: Do you want to hurt yourself or someone else? Patient reports no desire to harm self or others. Onset of symptoms was March 25, 2025. 18:26 Method Of Arrival: EMS: [facility] fl1 18:26 Acuity: BISI 3 me1 Triage Assessment: 18:29 General: Appears ill, obese, well groomed, well developed, Behavior is calm, me1 cooperative, appropriate for age. Pain: Denies pain. EENT: Reports blurred vision in right eye and left eye since intermittently for past 5 days. Neuro: Level of Consciousness is awake, alert, obeys commands, Oriented to person, place, time, situation, Appropriate for age Reports dizziness, since intermittently for past 5 days. near syncope tonight at dinner. Cardiovascular: Patient's skin is warm and dry. Respiratory: Airway is patent Respiratory effort is even, unlabored, Respiratory pattern is regular, symmetrical. GI: No signs and/or symptoms were reported involving the gastrointestinal system. : No signs and/or symptoms were reported regarding the genitourinary system. Derm: Skin is intact, is healthy with good turgor, Skin is normal. Musculoskeletal: Reports generalized weakness for past 5 days. Historical: - Allergies: 18:29 atorvastatin; me1 18:29 Baclofen; me1 18:29 hydrochlorothiazide; me1 18:29 Mobic; me1 - Home Meds: 19:43 Albuterol Inhl [Active]; alendronate oral every week [Active]; azathioprine 50 mg Oral lg3 tablet daily [Active]; benzonatate 200 mg oral capsule 3 times per day [Active]; Calcarb 600 With Vitamin D 600 mg(1 Oral tab [Active]; Aimovig Autoinjector subcutaneous every month [Active]; ezetimibe 10 mg oral tablet daily [Active]; hydrochlorothiazide 12.5 mg Oral tablet daily [Active]; levothyroxine 100 mcg tab 1 tab once daily [Active]; losartan 50 mg oral tablet twice a day [Active]; metformin 500 mg Oral tablet 2 times per day [Active]; Singulair 10 mg Oral tablet every evening [Active]; omeprazole 20 mg oral capsule,delayed release (e.c.) daily [Active]; - PMHx: 18:29 Hypertension; Hypothyroidism; Migraines; Sleep Apnea; Diabetes mellitus; me1 - PSHx: 18:29 None; me1 - Immunization history:: Adult Immunizations unknown. - Infectious Disease History:: Denies. - Social history:: Smoking status: Patient denies any tobacco usage or history of. Screenin:32 [facility] ED Fall Risk Assessment (Adult) History of falling in the last 3 months, me1 including since admission No falls in past 3 months (0 pts) Confusion or Disorientation No (0 pts) Intoxicated or Sedated No (0 pts) Impaired Gait Yes (1 pt) Mobility Assist Device Used No (0 pt) Altered Elimination No (0 pt) Score/Fall Risk Level 0 - 2 = Low Risk Maintained a safe environment, Provided non-skid footwear, Hourly rounding (assess needs \T\ fall precautionary measures) done. Abuse screen: Denies threats or abuse. Nutritional screening: No deficits noted. Tuberculosis screening: No symptoms or risk factors identified. Assessment: 18:32 Reassessment: See triage assessment. me1 19:10 General: Appears in no apparent distress. uncomfortable, Behavior is calm, cooperative. lg3 General: Reports feeling ill for fatigue for. Pain: Denies pain. Neuro: Level of Consciousness is awake, alert, obeys commands, Oriented to person, place, time, situation, Reports dizziness, weakness. Cardiovascular: Denies chest pain, shortness of breath, Capillary refill < 3 seconds Clubbing of nail beds is absent JVD is absent Patient's skin is warm and dry. Rhythm is sinus bradycardia. Respiratory: No deficits noted. Airway is patent Respiratory effort is even, unlabored, Respiratory pattern is regular, symmetrical, Breath sounds are clear bilaterally. GI: No deficits noted. No signs and/or symptoms were reported involving the gastrointestinal system. Abdomen is round non-distended. : No signs and/or symptoms were reported regarding the genitourinary system. EENT: No deficits noted. No signs and/or symptoms were reported regarding the EENT system. Derm: No deficits noted. No signs and/or symptoms reported regarding the dermatologic system. Skin is intact, is healthy with good turgor, Skin is dry, Skin is normal, Skin temperature is warm. Musculoskeletal: No deficits noted. Circulation, motion, and sensation intact. Range of motion: intact in all extremities, Reports generalized weakness. 20:15 Reassessment: Patient appears in no apparent distress at this time. No changes from lg3 previously documented assessment. Patient and/or family updated on plan of care and expected duration. Pain level reassessed. Patient is alert, oriented x 3, equal unlabored respirations, skin warm/dry/pink. 23:18 Reassessment: Patient appears in no apparent distress at this time. No changes from lg3 previously documented assessment. Patient and/or family updated on plan of care and expected duration. Pain level reassessed. Patient is alert, oriented x 3, equal unlabored respirations, skin warm/dry/pink. Patient states symptoms have not improved. 23:53 General: Zeb [phone]. lg3 Vital Signs: 18:26 BP 134 / 82; Pulse 52; Resp 17; Temp 98.5; Pulse Ox 100% ; Weight 104.33 kg; Height 5 me1 ft. 9 in. ; Pain 0/10; 18:30 BP 122 / 84; Pulse 54; Resp 18; Pulse Ox 100% ; me1 19:15 BP 118 / 73; Pulse 46; Resp 16 S; Pulse Ox 100% on R/A; lg3 20:15 BP 143 / 96; Pulse 52; Resp 17 S; Pulse Ox 100% on R/A; lg3 21:31 BP 151 / 93; Pulse 59; Resp 17 S; Pulse Ox 100% on R/A; lg3 23:18 BP 134 / 90; Pulse 65; Resp 17 S; Pulse Ox 98% on R/A; lg3 18:26 Body Mass Index 33.96 (104.33 kg, 175.26 cm) me1 18:26 Pain Scale: Adult fl1 NIH Stroke Scale Scores: 19:15 NIHSS Score: 0 cp ED Course: 18:25 Patient arrived in ED. me1 18:29 Triage completed. me1 18:29 Arm band placed on Patient placed in an exam room. me1 18:32 Patient has correct armband on for positive identification. Bed in low position. Call [facility] in reach. Side rails up X 1. Provided Education on: POC. Verbalized understanding.. Client placed on continuous cardiac and pulse oximetry monitoring. NIBP monitoring applied. awake overnight monitor on. Pulse ox on. NIBP on. 18:32 No provider procedures requiring assistance completed. me1 18:40 Erich Levin PA is PHCP. cp 18:40 Jaylen Lira MD is Attending Physician. cp 18:43 Ana Paula Platt RN is Primary Nurse. me1 19:10 Door closed. Noise minimized. Warm blanket given. Pillow given. Family accompanied lg3 patient. 19:10 Initial lab(s) drawn, by fl, sent to lab. EKG done, by ED staff, reviewed by Erich Levin lg3 PA. Inserted saline lock: 22 gauge in left antecubital area, using aseptic technique. Blood collected. Flushed with 10 mL NS. 19:22 Eyad Razo MD is Attending Physician. cp 19:53 CT Head Brain wo Cont In Process Unspecified. EDMS 20:03 XRAY Chest (1 view) In Process Unspecified. EDMS 20:54 Assisted to bathroom. lg3 20:54 Urine collected: clean catch specimen, clear. lg3 21:06 CT Chest For PE Angio In Process Unspecified. EDMS 22:50 Anna Wang MD is Hospitalizing Provider. cp 23:21 Patient admitted, IV remains in place. lg3 Administered Medications: 19:29 Drug: Meclizine PO 25 mg PO once Route: PO; lg3 21:36 Follow up: Response: No adverse reaction lg3 22:20 Drug: Potassium PO Effervescent Tablet 50 mEq PO once; dissolve in 4 ounces of water or lg3 juice Route: PO; 23:19 Follow up: Response: No adverse reaction lg3 Medication: 18:32 VIS not applicable for this client. me1 Outcome: 22:51 Decision to Hospitalize by Provider. cp 23:20 Admitted to ER Hold. Please see [facility] for further documentation. lg3 23:20 Condition: stable 23:20 Instructed on the need for admit, 03/31 08:40 Patient left the ED. ll1 NIH Stroke Scale - NIH Stroke Score Date: 03/30/2025 Time: 19:15 Total Score = 0 10. Dysarthria (speech clarity - read or repeat words) - 0(Normal) 11. Extinction and Inattention (visual/tactile/auditory/spatial/personal) - 0(No abnormality) 1a. Level of Consciousness (LOC) - 0(Alert) 1b. Level of Consciousness (LOC) (Month \T\ Age) - 0(Both) 1c. LOC Commands (Open \T\ Closes Eyes/Animal Behaviourist) - 0(Both) 2. Best Gaze (Lateral Gaze Paresis) - 0(Normal) 3. Visual Field Loss - 0(No visual loss) 4. Facial Palsy - 0(Normal) 5a. Left Arm: Motor (10-second hold) - 0(No drift) 5b. Right Arm: Motor (10-second hold) - 0(No drift) 6a. Left Leg: Motor (5-second hold - always test supine) - 0(No drift) 6b. Right Leg: Motor (5-second hold - always test supine) - 0(No drift) 7. Limb Ataxia (finger/nose \T\ heel/sal - test with eyes open) - 0(Absent) 8. Sensory Loss (pinprick arms/legs/face) - 0(Normal) 9. Best Language: Aphasia (description/naming/reading) - 0(No aphasia) Initials: cp Signatures: Dispatcher [employer] EDMS Erich Levin PA PA cp Able, Lacie, RN RN lg3 Marko Alfred RN RN ll1 Ana Paula Platt RN RN me1
[2025-03-31] MEDS ORDERED: ACETAMINOPHEN 325 MG TABLET PO PRN (00:02)
--- NOTE | 2025-03-31 00:11 | P.HP ---
Certification for Inpatient Patient admitted to: Observation With expected LOS: >2 Midnights Patient will require the following post-hospital care: None Practitioner: I am a practitioner with admitting privileges, knowledge of patient current condition, hospital course, and medical plan of care. Services: Services provided to patient in accordance with Admission requirements found in Title 42 Section 412.3 of the Code of Federal Regulations Patient History Date of Service: 03/31/25 Reason for admission: Weakness, near syncope, dizziness, and blurred vision, Bradycardia. History of Present Illness: Patient is a pleasant 69-year-old female with past medical history of GERD, type 2 diabetes mellitus, immune-mediated necrotizing myopathy, hypothyroidism, essential hypertension, osteoporosis, chronic back pain, brought to the ER today due to near syncope, generalized body weakness, dizziness, and blurred vision. Patient states for the past 4 to 5 days, she has been having some dizziness, states " it feels at times like the room is spinning", with unsteady gait when she is dizzy. Patient states she went out to eat today and states " for a short period of time about a minute, it was just a blackout, and could not see anything, and was diaphoretic". Patient states she did not fall, no weakness on bilateral upper and lower extremities.. She states she had similar experience in 2022. Patient states she has extensive coronary artery disease history in her family, states her brother and father all have heart disease. States she has been seeing her sledger Dr. Oropeza located in [place]. On admission assessment, patient was fully awake, alert and oriented x 3, no focal or sensory deficit identified at this time. Patient denies of any dizziness, blurred vision, nausea or vomiting at this time. Patient initial heart rate on the EKG in ER was 51. It appears to be a higher possibility that patient dizziness might be related to bradycardic. Patient D-dimer was elevated, had a CTA thorax/and chest, impression no evidence of pulmonary emboli to the subsegmental level. CT head impression-no evidence of acute intracranial normality. Chest x-ray negative. Allergies Nztpnmc-ZMQ-[id number] Reductase Inhibitor Allergy (Verified 03/31/25 00:55) Home medications list reviewed: Yes Home Medications: Albuterol Inhaler [Ventolin Inhaler*] 2 puff IH BIDP PRN 03/31/25 Alendronate [Fosamax] 70 mg PO EVERY 7TH DAY 03/31/25 Benzonatate 200 mg PO TID PRN 03/31/25 Calcium Carb/Vitamin D3/Vit K1 [Calcium + D Soft Chewable Tab] 1 cap PO DAILY 03/31/25 Erenumab-Aooe [Aimovig Autoinjector] 1 ea SQ DIRECTED MDD monthly 03/31/25 Ezetimibe [Zetia] 10 mg PO DAILY 03/31/25 Levothyroxine [Synthroid*] 1 tab PO DAILY 03/31/25 Losartan Potassium 50 mg PO BID 03/31/25 Metformin ER [Glucophage ER] 500 mg PO BID 03/31/25 Montelukast [Singulair*] 1 tab PO BEDTIME 03/31/25 Omeprazole 20 mg PO DAILY 03/31/25 azaTHIOprine [Imuran*] 1 tab PO DAILY 03/31/25 hydroCHLOROthiazide [Hydrochlorothiazide] 1 tab PO DAILY 03/31/25 - Past Medical/Surgical History Diabetic: Yes -: Type 2 diabetes mellitus. -: Essential hypertension -: GERD -: Osteoporosis. -: Hypothyroidism. -: Cholecystectomy. -: Appendectomy. -: Hysterectomy total. - Social History Smoking Status: Never smoker Alcohol use: No CD- Drugs: No Caffeine use: No Place of Residence: Home Review of Systems Musculoskeletal: Unremarkable (Generalized body weakness.) Neurological: Weakness Physical Examination - Physical Exam General: Alert, Oriented x3, Cooperative HEENT: Atraumatic, Normocephalic, PERRLA, Mucous membr. moist/pink, Sclerae nonicteric Neck: Supple, No LAD, Without JVD or thyroid abnormality Respiratory: Clear to auscultation bilaterally, Normal air movement Cardiovascular: No edema, Normal S1 S2, No gallops, No rubs, No murmurs Capillary refill: <2 Seconds Gastrointestinal: Normal bowel sounds, Soft and benign, Non-distended, W/out hepatomegaly, No ascites, No tenderness, No masses, No rebound, No guarding Musculoskeletal: No clubbing, No swelling, No erythema, No tenderness, No warmth Integumentary: No rashes, No breakdown, No tenderness/swelling, No erythema, No warmth, No cyanosis Neurological: Other (Generalized body weakness acute on chronic), Abnormal gait, Abnormal strength External genitalia: Non-tender Rectal: Normal - Studies Laboratory Data (last 24 hrs) 03/30/25 03/30/25 03/30/25 19:18 19:18 19:18 WBC 6.20 Hgb 14.0 Hct 41.3 Plt Count 196 PT 11.1 INR 0.97 Sodium 139 Potassium 3.4 L BUN 14 Creatinine 1.18 H Glucose 107 H Magnesium 2.1 Total Bilirubin 0.3 AST 11 L ALT 18 Alkaline Phosphatase 81 Female Exam - Female Pelvic Cervix: No discharge Assessment and Plan - Plan Patient is a pleasant 69-year-old female who reports to ER complaining of worsening generalized body weakness, near syncope, dizziness for the past 4 to 5 days, with blurred vision with no associated chest pain or shortness of breath. Patient has an autoimmune gkxxkdb-zkmnss-zzzjeedz necrotizing myopathy which might be attributed to patient muscle weakness. Patient initial EKG heart rate was 51. (1)Dizziness, weakness, and bradycardia. Patient had a CT head impression-no evidence of acute intracranial abnormality. -Order an MRI of the head. Based on patient MRI, if any acute findings, patient might then benefit from a neurologist consult. During admission assessment, no sensory, or focal deficit identified at this time. Patient has an hqbuzcdvin-tcwwie-ckybxtkp necrotizing myopathy disease which may also be contributing to her weakness. -Physical therapy consult. -Consult cardiology. Patient initial EKG heart rate was 51, is unclear if patient may be bradycardia at home, which may also attribute to her dizziness. -Order echocardiogram. -Meclizine 25 mg p.o. as needed. -IV NS at 75 mL/ hr x 1 L. Patient with dry mucous membrane, and appears dehydrated on admission assessment. (2)Chronic type 2 diabetes mellitus. -Medium sliding scale coverage. -Will hold patient home metformin at this time since patient had contrast done with a CT of the chest. (3)Chronic hypothyroidism. -Continue home medication levothyroxine 100 mcg p.o. daily. (4)Chronic hypertension. -Continue home medication losartan 50 mg p.o. twice daily. -Continue home medication HCTZ 12.5 mg p.o. daily. (5)Explained entire treatment plan to the patient, solicit questions answered and voiced understanding. Discharge Plan: Other (Home physical therapy.) Plan to discharge in: 48 Hours - Advance Directives Does patient have a Living Will: No Does patient have a Durable POA for Healthcare: No - Code Status/Comfort Care Code Status Assessed: Yes Code Status: Full Code
[2025-03-31] MEDS ORDERED: NA CHLORIDE 0.9% 1,000 ML ONE (00:32)
[2025-03-31] MEDS: NA CHLORIDE 0.9% 1,000 ML IV SCH (00:41)
[2025-03-31] MEDS ORDERED: ALBUTEROL INHALER 200 PUFF/6.7 GM IH PRN (00:44)
[2025-03-31 00:53] VITALS: BMI 34.0
[2025-03-31] MEDS ORDERED: MECLIZINE HCL 12.5 MG TAB PO PRN (04:24)
[2025-03-31 04:41] VITALS: O2SAT 97
[2025-03-31] MEDS ORDERED: PANTOPRAZOLE 40MG TABLET PO ONE (05:42)
[2025-03-31] MEDS: PANTOPRAZOLE 40MG TABLET PO SCH (06:30)
[2025-03-31] MEDS: LEVOTHYROXINE SOD 0.1 MG TAB PO SCH (06:30)
[2025-03-31] MEDS ORDERED: PANTOPRAZOLE 40MG TABLET PO SCH (06:30)
[2025-03-31] MEDS: INSULIN REGULAR (HUMAN) 100 UNIT/ML SQ SCH (07:30)
[2025-03-31 09:42] LABS: Anion Gap 8.7 mEq/L (5.0-15.0); Potassium 3.7 mEq/L (3.5-5.1); Thyroid Stimulating Hormone 1.24 uIU/mL (0.358-3.740); Troponin High Sensitivity 4.5 pg/mL (<58.9)
[2025-03-31] MEDS: ENOXAPARIN 40 MG/0.4 ML SQ SCH (09:58)
[2025-03-31] MEDS: LOSARTAN POTASSIUM 50 MG TABLET PO SCH (09:59)
[2025-03-31] MEDS: hydroCHLOROthiazide 12.5 MG CAP PO SCH (09:59)
--- NOTE | 2025-03-31 11:57 | EKG ---
Test Date: 2025-03-30 Test Time: 19:07:04 Plug Stitcher: MICHELINE MEASUREMENT RESULTS: Intervals: Rate: 51 GA: 170 QRSD: 106 QT: 450 QTc: 414 [place]: P: 58 GA: 170 QRS: 26 T: 55 INTERPRETIVE STATEMENTS: Sinus bradycardia Otherwise normal ECG Compared to ECG 05/02/2021 02:06:46 Sinus rhythm no longer present Left ventricular hypertrophy no longer present Electronically Signed On 03-31-25 11:56:15 CDT by Akin Guaman
--- NOTE | 2025-03-31 12:20 | ECHO ---
HEIGHT: 5 ft 9 in WEIGHT: 230 lb 0 oz DATE OF STUDY: 03/31/[address]: Zoran Almazan NP 2-DIMENSIONAL: YES M.MODE: YES DOPPLER: YES COLOR FLOW: YES TDS: PORTABLE: YES DEFINITY: BUBBLE STUDY: DIAGNOSIS: NEAR SYNCOPE/ BRADYCARDIA CARDIAC HISTORY: CATHERIZATION: SURGERY: PROSTHETIC VALVE: PACEMAKER: MEASUREMENTS (cm) DIASTOLIC (NORMALS) SYSTOLIC (NORMALS) IVSd 0.9 (0.6-1.2) LA Diam 3.1 (1.9-4.0) LVEF 50-55% LVIDd 3.9 (3.5-5.7) LVIDs 3.1 (2.0-3.5) %FS 19% LVPWd 0.9 (0.6-1.2) Ao Diam 2.6 (2.0-3.7) 2 DIMENSIONAL ASSESSMENT: RIGHT ATRIUM: NORMAL LEFT ATRIUM: NORMAL RIGHT VENTRICLE: NORMAL LEFT VENTRICLE: NORMAL TRICUSPID VALVE: TRACE TRICUSPID REGURGITATION MITRAL VALVE: NORMAL PULMONIC VALVE: NORMAL AORTIC VALVE: NORMAL PERICARDIAL EFFUSION: NONE AORTIC ROOT: NORMAL LEFT VENTRICULAR WALL MOTION: NORMAL DOPPLER/COLOR FLOW: GRADE I DIASTOLIC DYSFUNCTION COMMENTS: 1. NORMAL LEFT VENTRICULAR SYSTOLIC FUNCTION, EJECTION FRACTION 50-55%, NORMAL WALL MOTION 2. GRADE I DIASTOLIC DYSFUNCTION 3. MILD ELEVATED FILLING PRESSURE (RIGHT ATRIAL PRESSURE 5-10 mmHg) TECHNOLOGIST: RUI MCDONALD
--- NOTE | 2025-03-31 13:08 | P.CNS ---
Date of Consult: 03/31/25 Chief Complaint: Weakness, near syncope, dizziness, and blurred vision, Bradycardia. History of Present Illness: Patient with PMH of HTN, presented with dizzy spell, near syncope, has been going on for a while, denies chest pain, no palpitations, no SOB, no COTTER. Allergies Grdknfs-FHW-XlI Reductase Inhibitor Allergy (Verified 03/31/25 00:55) Home medications list reviewed: Yes Home Medications: Albuterol Inhaler [Ventolin Inhaler*] 2 puff IH BIDP PRN 03/31/25 Alendronate [Fosamax] 70 mg PO EVERY 7TH DAY 03/31/25 Benzonatate 200 mg PO TID PRN 03/31/25 Calcium Carb/Vitamin D3/Vit K1 [Calcium + D Soft Chewable Tab] 1 cap PO DAILY 03/31/25 Erenumab-Aooe [Aimovig Autoinjector] 1 ea SQ DIRECTED MDD monthly 03/31/25 Ezetimibe [Zetia] 10 mg PO DAILY 03/31/25 Levothyroxine [Synthroid*] 1 tab PO DAILY 03/31/25 Losartan Potassium 50 mg PO BID 03/31/25 Metformin ER [Glucophage ER] 500 mg PO BID 03/31/25 Montelukast [Singulair*] 1 tab PO BEDTIME 03/31/25 Omeprazole 20 mg PO DAILY 03/31/25 azaTHIOprine [Imuran*] 1 tab PO DAILY 03/31/25 hydroCHLOROthiazide [Hydrochlorothiazide] 1 tab PO DAILY 03/31/25 - Past Medical/Surgical History Diabetic: Yes -: Type 2 diabetes mellitus. -: Essential hypertension -: GERD -: Osteoporosis. -: Hypothyroidism. -: Cholecystectomy. -: Appendectomy. -: Hysterectomy total. - Social History Alcohol use: No CD- Drugs: No Caffeine use: No Place of Residence: Home Review of Systems 10-point ROS is otherwise unremarkable Physical Examination Temp Pulse Resp BP Pulse Ox 97.8 F 59 16 112/70 97 03/31/25 07:55 03/31/25 09:59 03/31/25 07:55 03/31/25 09:59 03/31/25 07:55 General: Alert, In no apparent distress HEENT: Atraumatic, PERRLA, Mucous membr. moist/pink, EOMI, Sclerae nonicteric Neck: Supple, 2+ carotid pulse no bruit, No LAD, Without JVD or thyroid abnormality Respiratory: Clear to auscultation bilaterally, Normal air movement Cardiovascular: Regular rate/rhythm, Normal S1 S2 Gastrointestinal: Normal bowel sounds, No tenderness Musculoskeletal: No tenderness Integumentary: No rashes Neurological: Normal gait, Normal speech, Normal tone, Normal affect Lymphatics: No axilla or inguinal lymphadenopathy Laboratory Data (last 24 hrs) 03/30/25 03/30/25 03/30/25 19:18 19:18 19:18 WBC 6.20 Hgb 14.0 Hct 41.3 Plt Count 196 PT 11.1 INR 0.97 Sodium 139 Potassium 3.4 L BUN 14 Creatinine 1.18 H Glucose 107 H Magnesium 2.1 Total Bilirubin 0.3 AST 11 L ALT 18 Alkaline Phosphatase 81 - Problems (1) Dizziness Current Visit: Yes Status: Acute Plan: continue to monitor on tele Echo shows normal EF, normal montgomery motion. Troponin negative x 3 get orthostatic vitals (2) HTN (hypertension) Current Visit: Yes Status: Acute Plan: continue losartan and HCTZ continue to monitor.
--- NOTE | 2025-03-31 13:13 | RAD REPORT ---
EXAMINATION: MRI BRAIN WITHOUT CONTRAST CLINICAL INDICATION: Syncope TECHNIQUE: Multiplanar multisequence MR images of the brain were obtained without intravenous contras t. Unless otherwise specified, incidental findings do not require dedicated imaging follow-up. COMPARISON: March 30, [address] FINDINGS: No significant abnormal signal within the brain. Diffusion weighted/ADC mapping does not demonstrate evidence of an acute infarction. Ventricles are normal caliber. No extra-axial fluid collection. No fluid within the sinuses/mastoid seen IMPRESSION: No acute intracranial abnormalities displayed
[2025-03-31 13:39] VITALS: BP 141/92; TEMP 97.2
--- NOTE | 2025-03-31 14:12 | P.DS ---
Admission Date: 03/30/25 Discharge Date: 03/31/25 Disposition: ROUTINE DISCHARGE Discharge Condition: GOOD Reason for Admission: Weakness, near syncope, dizziness, and blurred vision, Bradycardia. Brief History of Present Illness: Patient is a pleasant 69-year-old female with past medical history of GERD, type 2 diabetes mellitus, immune-mediated necrotizing myopathy, hypothyroidism, essential hypertension, osteoporosis, chronic back pain, brought to the ER today due to near syncope, generalized body weakness, dizziness, and blurred vision. Patient states for the past 4 to 5 days, she has been having some dizziness, states " it feels at times like the room is spinning", with unsteady gait when she is dizzy. Patient states she went out to eat today and states " for a short period of time about a minute, it was just a blackout, and could not see anything, and was diaphoretic". Patient states she did not fall, no weakness on bilateral upper and lower extremities.. She states she had similar experience in 2022. Patient states she has extensive coronary artery disease history in her family, states her brother and father all have heart disease. States she has been seeing her wood router Dr. Oropeza located in [place]. On admission assessment, patient was fully awake, alert and oriented x 3, no focal or sensory deficit identified at this time. Patient denies of any dizziness, blurred vision, nausea or vomiting at this time. Patient initial heart rate on the EKG in ER was 51. It appears to be a higher possibility that patient dizziness might be related to bradycardic. Patient D-dimer was elevated, had a CTA thorax/and chest, impression no evidence of pulmonary emboli to the subsegmental level. CT head impression-no evidence of acute intracranial normality. Chest x-ray negative. Hospital Course: Dizziness Hypertension Near Syncope Vital Signs/Physical Exam: Temp Pulse Resp BP Pulse Ox 97.2 F 70 16 141/92 H 100 03/31/25 12:00 03/31/25 12:00 03/31/25 12:00 03/31/25 12:03/31/25 12:00 General: Alert, In no apparent distress, Oriented x3 HEENT: Atraumatic, PERRLA Neck: Supple Respiratory: Clear to auscultation bilaterally, Normal air movement Cardiovascular: Regular rate/rhythm, Normal S1 S2 Gastrointestinal: Normal bowel sounds, No tenderness Musculoskeletal: No tenderness Integumentary: No rashes Neurological: Normal speech, Normal affect Laboratory Data at Discharge: WBC 6.20 thou/uL (4.3-10.9) 03/30/25 19:18 Hgb 14.0 g/dL (12.0-15.0) 03/30/25 19:18 Hct 41.3 % (36.0-45.0) 03/30/25 19:18 Plt Count 196 thou/uL (152-406) 03/30/25 19:18 PT 11.1 SECONDS (10-13.0) 03/30/25 19:18 INR 0.97 03/30/25 19:18 Sodium 141 mEq/L (136-145) 03/31/25 09:04 Potassium 3.7 mEq/L (3.5-5.1) 03/31/25 09:04 BUN 13 mg/dL (7-18) 03/31/25 09:04 Creatinine 0.96 mg/dL (0.55-1.02) 03/31/25 09:04 Glucose 95 mg/dL (74-106) 03/31/25 09:04 Magnesium 2.1 mg/dL (1.6-2.4) 03/30/25 19:18 Total Bilirubin 0.3 mg/dL (0.2-1.0) 03/30/25 19:18 AST 11 U/L (15-37) L 03/30/25 19:18 ALT 18 U/L (13-56) 03/30/25 19:18 Alkaline Phosphatase 81 U/L (45-117) 03/30/25 19:18 Home Medications: Albuterol Inhaler [Ventolin Inhaler*] 2 puff IH BIDP PRN 03/31/25 Alendronate [Fosamax] 70 mg PO EVERY 7TH DAY 03/31/25 Benzonatate 200 mg PO TID PRN 03/31/25 Calcium Carb/Vitamin D3/Vit K1 [Calcium + D Soft Chewable Tab] 1 cap PO DAILY 03/31/25 Erenumab-Aooe [Aimovig Autoinjector] 1 ea SQ DIRECTED MDD monthly 03/31/25 Ezetimibe [Zetia] 10 mg PO DAILY 03/31/25 Levothyroxine [Synthroid*] 1 tab PO DAILY 03/31/25 Losartan Potassium 50 mg PO BID 03/31/25 Metformin ER [Glucophage ER] 500 mg PO BID 03/31/25 Montelukast [Singulair*] 1 tab PO BEDTIME 03/31/25 Omeprazole 20 mg PO DAILY 03/31/25 azaTHIOprine [Imuran*] 1 tab PO DAILY 03/31/25 hydroCHLOROthiazide [Hydrochlorothiazide] 1 tab PO DAILY 03/31/25 Physician Discharge Instructions: Patient was admitted to the hospital for weakness, near syncope and dizziness. She was monitored on telemetry with no significant arrhythmia, she has been in sinus rhythm with a rate from 60-70. Troponins were trended and negative x 3 D- dimer was initially positive at 0.713, subsequent CTA of the chest was performed which showed no evidence of pulmonary embolism, CT head was negative for acute findings, MRI of the brain was performed which showed no signs of acute CVA or other acute findings. Echocardiogram performed on 03/31 and showed normal LVEF, normal wall motion grade 1 diastolic dysfunction, mild elevated filling pressure right atrial pressure 5 to 10 mmHg. We also checked patient's TSH and free T4, TSH was 1.24 and free T4 was 1.68. Orthostatic vital signs were also negative. Patient still is feeling the sensation of dizziness/room spinning with changes in position or movement in head. She reports that she has had the symptoms for years and been evaluated outpatient by ENT who have been unable to determine the etiology. She has trialed differential medications without significant improvement as well as Jim maneuver. Offered attempts at different medications including meclizine or Valium as well as performing the Jim maneuver but patient declined stating this did not help in the past and she did not want any more medications. Patient stable for discharge outpatient follow-up with her primary care doctor, neurology outpatient. Diet: AHA Activity: Fall precautions Followup: NONE,NONE [Primary Care Provider] - 1-2 Weeks Time spent managing pt's care (in minutes): 55
[2025-03-31] MEDS ORDERED: EZETIMIBE 10 MG TAB PO SCH (21:00)
== END 2025-03-31 14:25 | disposition home or self-care (01) ==
LOC: ER 18:24 → ERHOLD 23:57 → 3RD-ICU 03-31 08:17
PROVIDERS: ADMIT Hospitalist; ATTEND Hospitalist
DX: R55 Syncope and collapse (principal); R53.1 Weakness; R42 Dizziness and giddiness; R00.1 Bradycardia, unspecified; H53.8 Other visual disturbances; K21.9 Gastro-esophageal reflux disease without esophagitis; E11.9 Type 2 diabetes mellitus without complications; E03.9 Hypothyroidism, unspecified; I10 Essential (primary) hypertension; M81.0 Age-related osteoporosis without current pathological fracture; M54.9 Dorsalgia, unspecified; Z82.49 Family history of ischemic heart disease and other diseases of the circulatory system
CPT/HCPCS: 93005; 93306; 85025; 80048 ×2; 36415; 83735; 82550; 85610; 82947 ×2; 85379; 80076; 84443; 81003; 84484 ×3; 84439; 83880; 70450; 71275; 71045; 70551; Q9967; J8597; J1650; J7030; G0378